=== PATIENT | female | born 1955 | race Caucasian/White ===

== ENCOUNTER 2022-05-15 06:02 | Emergency (ER) | payer MEDICARE, OTHER ==
[2022-05-15] MEDS ORDERED: METOCLOPRAMIDE 5 MG/ML 2 ML VIAL IVP STA (06:18)
[2022-05-15] MEDS ORDERED: MAG HYDROX/AL HYDROX/SIMETH 30 ML CUP PO STA (06:18)
[2022-05-15 06:46] LABS: Basophils % (A) 1 %; Eosinophils # (A) 0.1 k/uL (0-0.7); Eosinophils % (A) 1 %; HCT 40.4 % (34.0-46.0); HGB 13.4 gm/dL (11.4-16.0); Lymphocytes # (A) 2.1 k/uL (1.0-4.8); Lymphocytes % (A) 38 %; MCH 31.6 pg (25.0-35.0); MCHC 33.2 g/dL (31.0-37.0); MCV 95.1 fL (80.0-100.0); Mean Platelet Volume 8.1; Monocytes # (A) 0.4 k/uL (0-1.0); Monocytes % (A) 8 %; Neutrophils # (A) 2.7 k/uL (1.3-7.7); Neutrophils % (A) 50 %; Platelet Count 214 k/uL (150-450); RBC 4.25 m/uL (3.80-5.40); RDW 14.3 % (11.5-15.5); WBC 5.4 k/uL (3.8-10.6)
[2022-05-15 06:52] LABS: ALT 25 U/L (4-34); AST 60 U/L (14-36); African American GFR (CKD) >90 (>60 ml/min/1.73 sqM); Albumin 3.2 g/dL (3.5-5.0); Alkaline Phosphatase 102 U/L (38-126); Anion Gap 10 mmol/L; Blood Urea Nitrogen 16 mg/dL (7-17); Calcium 8.5 mg/dL (8.4-10.2); Carbon Dioxide 26 mmol/L (22-30); Chloride 99 mmol/L (98-107); Glucose 107 mg/dL (74-99); Magnesium 2.1 mg/dL (1.6-2.3); Non-African American GFR(CKD) >90 (>60 ml/min/1.73 sqM); Sodium 135 mmol/L (137-145); Total Bilirubin 0.8 mg/dL (0.2-1.3)
--- NOTE | 2022-05-15 07:05 | ED ---
Chest Pain HPI - General Chief Complaint: Chest Pain Stated Complaint: covid+, chest pain Time Seen by Provider: 05/15/22 06:03 Source: patient, EMS, RN notes reviewed Mode of arrival: EMS Limitations: no limitations - History of Present Illness Initial Comments: This a 66-year-old female presents emergency Department chief complaint of generalized weakness, not feeling well. Patient states she was diagnosed with COVID-19 on Thursday at [facility]. Patient states she was diagnosed when she was in the hospital for chest pain. Patient states she was admitted had a cardiac cath with no findings. She states she had clean coronary arteries and had no stents placed. Patient states she was discharged. Patient states that she is currently on pelvic rest for history of PE she denies any shortness breath she does not that she's been coughing a lot complaint of epigastric comfort. Patient states that she has no shortness breath no recent fevers or not taken Tylenol Motrin denies any GI symptoms currently but does admit to prior nausea and diarrhea. Patient offers no other associated symptoms. - Related Data Home Medications Medication Instructions Recorded Confirmed Baclofen [Lioresal] 10 mg PO BID 01/01/14 01/01/14 Cholecalciferol [Vitamin D3 (25 5,000 unit PO DAILY@1200 01/01/14 01/01/14 Mcg = 1000 Iu)] Omeprazole 40 mg PO AC-BRKFST 01/01/14 01/01/14 Spironolactone [Aldactone] 12.5 mg PO DAILY 01/01/14 01/01/14 atenoloL [Tenormin] 12.5 mg PO HS 01/01/14 01/01/14 traMADol HCl [Ultram] 50 mg PO QID PRN 01/01/14 01/01/14 Previous Rx's Medication Instructions Recorded Propafenone [Rythmol] 150 mg PO Q8HR #90 tab 01/03/14 Rivaroxaban [Xarelto] 20 mg PO DAILY #30 tab 01/03/14 lisinopriL [Zestril] 5 mg PO DAILY #30 tab 01/03/14 Nirmatrelvir/Ritonavir [Paxlovid See Rx Instructions .ROUTE 05/15/22 2X150 mg-100 mg (Eua)] .COMPLEX #30 tab Allergies Allergy/AdvReac Type Severity Reaction Status Date / Time amoxicillin trihydrate AdvReac Diarrhea Verified 05/15/22 06:13 [From Augmentin] potassium clavulanate AdvReac Diarrhea Verified 05/15/22 06:13 [From Augmentin] Review of Systems ROS Statement: Those systems with pertinent positive or pertinent negative responses have been documented in the HPI. ROS Other: All systems not noted in ROS Statement are negative. EKG Findings - EKG Comments: EKG Findings:: EKG performed at 6:11 sinus rhythm rate of 68 TN 165 QRS 89 QT status QTC 438/456 Past Medical History Past Medical History: Asthma, GERD/Reflux, Hypertension Additional Past Medical History / Comment(s): ARTHRITIS, MUSCLE SPAMS, NERVE PAIN NUMBNESS TOES AND HANDS, LEFT SHOULDER STIFFNESS History of Any Multi-Drug Resistant Organisms: None Reported Past Surgical History: Appendectomy, Tonsillectomy Additional Past Surgical History / Comment(s): RIGHT BREAST BIOPSY/ABCESS ABD REMOVED 2 TIMES AGE 29S Past Anesthesia/Blood Transfusion Reactions: No Reported Reaction Past Psychological History: No Psychological Hx Reported Past Drug Use History: None Reported - Past Family History Mother Family Medical History: CVA/TIA, Diabetes Mellitus, Hypertension Additional Family Medical History / Comment(s): ARTHRITIS Father Additional Family Medical History / Comment(s): SUDDENLY AGE 59 EMPHYSEMA AND GANGRENE COLON Brother(s) Additional Family Medical History / Comment(s): HEART STENTS AND OPEN HEART SURGERY Sister(s) Additional Family Medical History / Comment(s): OSTEOPOROSIS General Exam Limitations: no limitations General appearance: alert, in no apparent distress Head exam: Present: atraumatic, normocephalic, normal inspection Eye exam: Present: normal appearance, PERRL, EOMI. Absent: scleral icterus, conjunctival injection, periorbital swelling ENT exam: Present: normal exam, normal oropharynx, mucous membranes moist Neck exam: Present: normal inspection, full ROM. Absent: tenderness, meningismus, lymphadenopathy Respiratory exam: Present: normal lung sounds bilaterally. Absent: respiratory distress, wheezes, rales, rhonchi, stridor Cardiovascular Exam: Present: regular rate, normal rhythm, normal heart sounds. Absent: systolic murmur, diastolic murmur, rubs, gallop, clicks GI/Abdominal exam: Present: soft, normal bowel sounds. Absent: distended, tenderness, guarding, rebound, rigid Neurological exam: Present: alert Skin exam: Present: warm, dry, intact, normal color. Absent: rash Course Vital Signs 05/15/22 06:50 Temperature 98.6 F Pulse Rate 81 Respiratory 15 Rate Blood Pressure 149/72 O2 Sat by Pulse 97 Oximetry Chest Pain MDM - MDM 66-year-old female presented for COVID-19 [place] not feeling well. Workup is negative this time she had a recent cardiac cath which was negative on Thursday. Patient says a positive for COVID-19. Patient be given Paxil bid. Patient does have home health care nursing which is been set up today. Patient will be discharged to home. Disposition Clinical Impression: COVID-19 Disposition: HOME SELF-CARE Condition: Stable Additional Instructions: Please return to the Emergency Department if symptoms worsen or any other concerns. Prescriptions: Nirmatrelvir/Ritonavir [Paxlovid 2X150 mg-100 mg (Eua)] See Rx Instructions .ROUTE .COMPLEX #30 tab Is patient prescribed a controlled substance at d/c from ED?: No Referrals: Epifanio Durham MD [Primary Care Provider] - 1-2 days Time of Disposition: 08:02
[2022-05-15 07:25] LABS: Potassium 4.8 mmol/L (3.5-5.1)
--- NOTE | 2022-05-15 07:33 | XR ---
EXAMINATION TYPE: XR chest 1V DATE OF EXAM: 05/15/2022 COMPARISON: NONE HISTORY: 66-year-old female weakness TECHNIQUE: Single frontal view of the chest is obtained. FINDINGS: Low lung volumes with crowded vascular markings. This likely accentuates the heart size, upper limits of normal. Hazy peripheral densities likely relating to overlying soft tissue and portable technique . No tiarra consolidation or pleural effusion seen. Advanced degenerative change left shoulder. IMPRESSION: Portable technique further limited by low lung volumes. No definite acute process.
[2022-05-15 10:25] VITALS: BP 146/92; PULSE 76; RESP 22; TEMP 97.6
== END 2022-05-15 10:24 | disposition home or self-care (01) ==
LOC: EC 06:02
DX: U07.1 COVID-19 (principal); K21.9 Gastro-esophageal reflux disease without esophagitis; E11.9 Type 2 diabetes mellitus without complications; I10 Essential (primary) hypertension; Z88.0 Allergy status to penicillin; Z88.1 Allergy status to other antibiotic agents; Z79.83 Long term (current) use of bisphosphonates; Z79.899 Other long term (current) drug therapy
CPT/HCPCS: 36415; 93005; 83880; 80053; 83735; 85025; 71045; 99285; 96374; J2765

== ENCOUNTER 2025-01-16 13:04 | Inpatient (IN) | payer MEDICARE, OTHER ==
--- NOTE | 2025-01-16 13:18 | ED ---
General Adult HPI - General Stated complaint: AMS Time Seen by Provider: 01/16/25 13:13 Source: patient, EMS, RN notes reviewed Mode of arrival: EMS Limitations: physical limitation - History of Present Illness Initial comments: Patient is a 69-year-old female present to the emergency department by EMS with concern for reported altered mental status. EMS reports patient and family are poor historians. Patient is not ambulatory. Patient has decreased oral intake. Patient complains of pain everywhere. - Related Data Home Medications Medication Instructions Recorded Confirmed Baclofen [Lioresal] 10 mg PO BID 01/01/14 01/01/14 Cholecalciferol [Vitamin D3 (25 5,000 unit PO DAILY@1200 01/01/14 01/01/14 Mcg = 1000 Iu)] Omeprazole 40 mg PO AC-BRKFST 01/01/14 01/01/14 Spironolactone [Aldactone] 12.5 mg PO DAILY 01/01/14 01/01/14 atenoloL [Tenormin] 12.5 mg PO HS 01/01/14 01/01/14 traMADol HCl [Ultram] 50 mg PO QID PRN 01/01/14 01/01/14 Previous Rx's Medication Instructions Recorded Propafenone [Rythmol] 150 mg PO Q8HR #90 tab 01/03/14 Rivaroxaban [Xarelto] 20 mg PO DAILY #30 tab 01/03/14 lisinopriL [Zestril] 5 mg PO DAILY #30 tab 01/03/14 Nirmatrelvir/Ritonavir [Paxlovid See Rx Instructions .ROUTE 05/15/22 2X150 mg-100 mg (Eua)] .COMPLEX #30 tab Allergies Allergy/AdvReac Type Severity Reaction Status Date / Time amoxicillin trihydrate AdvReac Diarrhea Verified 05/15/22 06:13 [From Augmentin] potassium clavulanate AdvReac Diarrhea Verified 05/15/22 06:13 [From Augmentin] Review of Systems ROS Statement: Those systems with pertinent positive or pertinent negative responses have been documented in the HPI. ROS Other: All systems not noted in ROS Statement are negative. Constitutional: Denies: fever Respiratory: Denies: dyspnea Cardiovascular: Denies: chest pain Gastrointestinal: Reports: as per HPI. Denies: vomiting Past Medical History Past Medical History: Asthma, GERD/Reflux, Hypertension Additional Past Medical History / Comment(s): ARTHRITIS, MUSCLE SPAMS, NERVE PAIN NUMBNESS TOES AND HANDS, LEFT SHOULDER STIFFNESS History of Any Multi-Drug Resistant Organisms: None Reported Past Surgical History: Appendectomy, Tonsillectomy Additional Past Surgical History / Comment(s): RIGHT BREAST BIOPSY/ABCESS ABD REMOVED 2 TIMES AGE 29S Past Anesthesia/Blood Transfusion Reactions: No Reported Reaction Past Psychological History: No Psychological Hx Reported Past Drug Use History: None Reported - Past Family History Mother Family Medical History: CVA/TIA, Diabetes Mellitus, Hypertension Additional Family Medical History / Comment(s): ARTHRITIS Father Additional Family Medical History / Comment(s): SUDDENLY AGE 59 EMPHYSEMA AND GANGRENE COLON Brother(s) Additional Family Medical History / Comment(s): HEART STENTS AND OPEN HEART SURGERY Sister(s) Additional Family Medical History / Comment(s): OSTEOPOROSIS General Exam Limitations: physical limitation General appearance: alert Head exam: Present: atraumatic Eye exam: Present: normal appearance ENT exam: Present: mucous membranes dry Neck exam: Present: normal inspection Respiratory exam: Present: normal lung sounds bilaterally Cardiovascular Exam: Present: tachycardia, irregular rhythm GI/Abdominal exam: Present: soft. Absent: tenderness Neurological exam: Present: alert, oriented X3 Expanded Neurological exam: Present: protecting the airway Patient oriented to: Present: person, place, time Speech: Present: fluid speech Cranial nerves: EOM's Intact: Normal Sensory exam: Upper Extremity Light Touch: Normal, Lower Extremity Light Touch: Normal Motor strength exam: RUE: 5, LUE: 5, RLE: 2/1, LLE: 2/1 Eye Response: (4) open spontaneously Motor Response: (6) obeys commands Verbal Response: (5) oriented Psychiatric exam: Present: normal affect, normal mood Skin exam: Present: other (Small but deep sacral ulcer. No drainage or di scharge.) Course Vital Signs 01/16/25 01/16/25 13:09 13:43 Temperature 98.5 F Pulse Rate 122 H 131 H Respiratory 22 20 Rate Blood Pressure 101/60 150/99 O2 Sat by Pulse 79 L 97 Oximetry EKG Findings - EKG Results: EKG: interpreted by ERMD (Left axis.), normal QRS, normal ST/T EKG shows: tachycardia, atrial fibrillation Procedures - ABG Interpretation Ph: 7.41 PCO2: 33 PO2: 77 Interpretation: other (Mildly hypoxic) Medical Decision Making - Medical Decision Making Was pt. sent in by a medical professional or institution ([facility], [employer], urgent care, hospital, or [place] health [place] facility...) When possible be specific @ -No Did you speak to anyone other than the patient for history (EMS, parent, family, police, friend...)? What history was obtained from this source @ -EMS helps provide history as patient is a poor historian Did you review nursing and triage notes (agree or disagree)? Why? @ -I reviewed and agree with nursing and triage notes Were old charts reviewed (outside hosp., previous admission, EMS record, old EKG, old radiological studies, urgent care reports/EKG's, [place] health care facility records)? Report findings @ -No old charts were reviewed Differential Diagnosis (chest pain, altered mental status, abdominal pain women, abdominal pain men, vaginal bleeding, weakness, fever, dyspnea, syncope, headache, dizziness, GI bleed, back pain, seizure, CVA, palpatations, mental health, musculoskeletal)? @ -Differential Weakness: Hypoglycemia, shock, sepsis, hyponatremia, anemia, infection, NE, ETOH, adverse medicine reaction, overdose, stroke, this is not meant to be an all-inclusive list. EKG interpreted by me (3pts min.). @ -As above X-rays interpreted by me (1pt min.). @ -Chest x-ray shows right middle and lower lobe infiltrate. Possible left nodular infiltrate CT interpreted by me (1pt min.). @ -None done U/S interpreted by me (1pt. min.). @ -None done What testing was considered but not performed or refused? (CT, X-rays, U/S, labs)? Why? @ -CT chest will be ordered What meds were considered but not given or refused? Why? @ -None Did you discuss the management of the patient with other professionals (professionals i.e. [facility], [employer], lab, RT, psych nurse, medical social consultant, laborer carpentry dock, teacher, sales and service officer, case consultant)? Give summary @ -Case discussed with Dr. Hi covering Dr. Peters who admits for Dr. Jackson for us Was smoking cessation discussed for >3mins.? @ -No Was critical care preformed (if so, how long)? @ -32 minutes critical care time Were there social determinants of health that impacted care today? How? (Homelessness, low income, unemployed, alcoholism, drug addiction, transportation, low edu. Level, literacy, decrease access to med. care, halfway, rehab)? @ -Nonambulatory Was there de-escalation of care discussed even if they declined (Discuss DNR or withdrawal of care, Hospice)? DNR status @ -No What co-morbidities impacted this encounter? (DM, HTN, Smoking, COPD, CAD, Cancer, CVA, ARF, Chemo, Hep., AIDS, mental health diagnosis, sleep apnea, morbid obesity)? @ -None Was patient admitted / discharged? Hospital course, mention meds given and route, prescriptions, significant lab abnormalities, going to OR and other pertinent info. @ -Patient presents from home with various nonspecific complaints. Patient does have UTI with associated sepsis and concern for dehydration. Chest x-ray is abnormal, possible pneumonia versus other. There is concern for sepsis diagnosed at 1510. Blood culture and lactic acid and IV antibiotics have all been ordered. Patient reevaluated and updated. [place] orders written. Undiagnosed new problem with uncertain prognosis? @ -No Drug Therapy requiring intensive monitoring for toxicity (Heparin, Nitro, Insulin, Cardizem)? @ -No Were any procedures done? @ -No Diagnosis/symptom? @ -Sepsis, UTI, pneumonia, dehydration Acute, or Chronic, or Acute on Chronic? @ -Acute, acute, acute, acute Uncomplicated (without systemic symptoms) or Complicated (systemic symptoms)? @ -Complicated with underlying A-fib with RVR, rate is improving currently 114 with fluids Side effects of treatment? @ -No Exacerbation, Progression, or Severe Exacerbation? @ -No Poses a threat to life or bodily function? How? (Chest pain, USA, NE, pneumonia, PE, COPD, DKA, ARF, appy, cholecystitis, CVA, Diverticulitis, Homicidal, Suicidal, threat to staff... and all critical care pts) @ -Threat to metabolic function - Lab Data Result diagrams: 01/16/25 13:56 01/16/25 13:56 Lab Results 01/16/25 01/16/25 01/16/25 Range/Units 13:56 13:56 13:56 WBC 26.61 H (4.50-10.00) 10*3/uL RBC 4.38 (4.10-5.20) 10*6/uL Hgb 13.3 (12.0-15.0) g/dL Hct 39.7 (37.2-46.3) % MCV 90.6 (80.0-97.0) fL MCH 30.4 (27.0-32.0) pg MCHC 33.5 (32.0-37.0) g/dL Plt Count 250 (140-440) 10*3/uL MPV 9.6 (9.5-12.2) fL Immature Gran % (Auto) 1.9 % Neutrophils % 82.8 % Lymphocytes % 8.0 % Monocytes % 6.8 % Eosinophils % 0.1 % Basophils % 0.4 % Immature Gran # 0.50 H (0.00-0.04) 10*3/uL Neutrophils # 22.03 H (1.80-7.70) 10*3/uL Lymphocytes # 2.14 (0.90-5.00) 10*3/uL Monocytes # 1.81 H (0.20-1.00) 10*3/uL Eosinophils # 0.03 L (0.04-0.35) 10*3/uL Basophils # 0.10 (0.00-0.10) 10*3/uL Sample Site ABG pH (7.35-7.45) ABG pCO2 (35-45) mmHg ABG pO2 (83-108) mmHg ABG HCO3 (21-25) mmol/L ABG Total CO2 (19-24) mmol/L ABG O2 Saturation (94-97) % ABG Base Excess mmol/L Chaka Test Hemoglobin (11.4-16.0) gm/dL FiO2 % Sodium 129 L (137-145) mmol/L Potassium 5.6 H (3.5-5.1) mmol/L Chloride 100 (98-107) mmol/L Carbon Dioxide 17 L (22-30) mmol/L Anion Gap 12 mmol/L BUN 38 H (7-17) mg/dL Creatinine 0.76 (0.52-1.04) mg/dL Est GFR (CKD-EPI)AfAm >90 (>60 ml/min/1.73 sqM) Est GFR (CKD-EPI)NonAf 80 (>60 ml/min/1.73 sqM) Glucose 114 H (74-99) mg/dL Plasma Lactic Acid Rich (0.7-2.0) mmol/L Calcium 7.8 L (8.4-10.2) mg/dL Magnesium 2.5 H (1.6-2.3) mg/dL Total Bilirubin 0.9 (0.2-1.3) mg/dL AST 71 H (14-36) U/L ALT 25 (4-34) U/L Alkaline Phosphatase 362 H (38-126) U/L Troponin I (0.000-0.034) ng/mL Total Protein 6.1 L (6.3-8.2) g/dL Albumin 2.0 L (3.5-5.0) g/dL Urine Color Yellow Urine Appearance Turbid H (Clear) Urine pH 5.5 (5.0-8.0) Ur Specific [place] 1.021 (1.001-1.035) Urine Protein 1+ H (Negative) Urine Glucose (UA) 3+ H (Negative) Urine Ketones Negative (Negative) Urine Blood Small H (Negative) Urine Nitrite Negative (Negative) Urine Bilirubin Negative (Negative) Urine Urobilinogen 6.0 (<2.0) mg/dL Ur Leukocyte Esterase Large H (Negative) Urine RBC >182 H (0-5) /hpf Urine WBC >182 H (0-5) /hpf Urine WBC Clumps Many H (None) /hpf Urine Mucus Rare H (None) /hpf Urine Yeast (Budding) Many H (None) /hpf 01/16/25 01/16/25 01/16/25 Range/Units 13:56 14:04 14:28 WBC (4.50-10.00) 10*3/uL RBC (4.10-5.20) 10*6/uL Hgb (12.0-15.0) g/dL Hct (37.2-46.3) % MCV (80.0-97.0) fL MCH (27.0-32.0) pg MCHC (32.0-37.0) g/dL Plt Count (140-440) 10*3/uL MPV (9.5-12.2) fL Immature Gran % (Auto) % Neutrophils % % Lymphocytes % % Monocytes % % Eosinophils % % Basophils % % Immature Gran # (0.00-0.04) 10*3/uL Neutrophils # (1.80-7.70) 10*3/uL Lymphocytes # (0.90-5.00) 10*3/uL Monocytes # (0.20-1.00) 10*3/uL Eosinophils # (0.04-0.35) 10*3/uL Basophils # (0.00-0.10) 10*3/uL Sample Site Left Brachial ABG pH 7.42 (7.35-7.45) ABG pCO2 33 L (35-45) mmHg ABG pO2 77 L (83-108) mmHg ABG HCO3 22 (21-25) mmol/L ABG Total CO2 23 (19-24) mmol/L ABG O2 Saturation 95.9 (94-97) % ABG Base Excess -2.4 mmol/L Chaka Test Yes Hemoglobin 12.6 (11.4-16.0) gm/dL FiO2 45 % Sodium (137-145) mmol/L Potassium (3.5-5.1) mmol/L Chloride (98-107) mmol/L Carbon Dioxide (22-30) mmol/L Anion Gap mmol/L BUN (7-17) mg/dL Creatinine (0.52-1.04) mg/dL Est GFR (CKD-EPI)AfAm (>60 ml/min/1.73 sqM) Est GFR (CKD-EPI)NonAf (>60 ml/min/1.73 sqM) Glucose (74-99) mg/dL Plasma Lactic Acid Rich 3.2 H* (0.7-2.0) mmol/L Calcium (8.4-10.2) mg/dL Magnesium (1.6-2.3) mg/dL Total Bilirubin (0.2-1.3) mg/dL AST (14-36) U/L ALT (4-34) U/L Alkaline Phosphatase (38-126) U/L Troponin I 0.014 (0.000-0.034) ng/mL Total Protein (6.3-8.2) g/dL Albumin (3.5-5.0) g/dL Urine Color Urine Appearance (Clear) Urine pH (5.0-8.0) Ur Specific [place] (1.001-1.035) Urine Protein (Negative) Urine Glucose (UA) (Negative) Urine Ketones (Negative) Urine Blood (Negative) Urine Nitrite (Negative) Urine Bilirubin (Negative) Urine Urobilinogen (<2.0) mg/dL Ur Leukocyte Esterase (Negative) Urine RBC (0-5) /hpf Urine WBC (0-5) /hpf Urine WBC Clumps (None) /hpf Urine Mucus (None) /hpf Urine Yeast (Budding) (None) /hpf Critical Care Time Critical Care Time: Yes Disposition Clinical Impression: Sepsis Disposition: ADMITTED IP TO THIS HOSP Condition: Serious Is patient prescribed a controlled substance at d/c from ED?: No Referrals: Dejan Barrios DO [Primary Care Provider] - 1-2 days Time of Disposition: 15:18
[2025-01-16] MEDS: LACTATED RINGERS 1,000 ML IV ONE (13:33)
[2025-01-16 14:09] LABS: Basophils # (A) 0.10 10*3/uL (0.00-0.10); Basophils % (A) 0.4 %; Eosinophils # (A) 0.03 10*3/uL (0.04-0.35); Eosinophils % (A) 0.1 %; HCT 39.7 % (37.2-46.3); HGB 13.3 g/dL (12.0-15.0); Lymphocytes # (A) 2.14 10*3/uL (0.90-5.00); Lymphocytes % (A) 8.0 %; MCH 30.4 pg (27.0-32.0); MCHC 33.5 g/dL (32.0-37.0); MCV 90.6 fL (80.0-97.0); Monocytes # (A) 1.81 10*3/uL (0.20-1.00); Monocytes % (A) 6.8 %; Neutrophils # (A) 22.03 10*3/uL (1.80-7.70); Neutrophils % (A) 82.8 %; Platelet Count 250 10*3/uL (140-440); RBC 4.38 10*6/uL (4.10-5.20); RDW 19.6 % (11.5-14.5); WBC 26.61 10*3/uL (4.50-10.00)
[2025-01-16 14:15] LABS: Bilirubin,Urine Negative (Negative); Blood,Urine Small (Negative); Budding Yeast,Urine Many /hpf; Color,Urine Yellow; Glucose,Urine (UA) 3+ (Negative); Ketones,Urine Negative (Negative); Leukocyte Esterase,Urine Large (Negative); Mucus,Urine Rare /hpf; Nitrite,Urine Negative (Negative); PH, Urine 5.5 (5.0-8.0); Protein,Urine 1+ (Negative); RBC,Urine >182 /hpf (0-5); Specific Gravity,Urine 1.021 (1.001-1.035); Urobilinogen,Urine 6.0 mg/dL (<2.0); WBC,Urine >182 /hpf (0-5)
--- NOTE | 2025-01-16 14:15 | XR ---
EXAMINATION TYPE: XR chest 1V portable DATE OF EXAM: 01/16/2025 2:06 PM COMPARISON: 05/15/2022 CLINICAL INDICATION: Female, 69 years old with history of weak, TECHNIQUE: XR chest 1V portable views of the chest are obtained. FINDINGS: Demonstrated are scattered senescent parenchymal change. There is nonspecific infiltrate right mid and right lower lung zone with a degree of patchy density l eft lateral lung base which appears somewhat nodular. Underlying mass is not excluded. There is also right-sided pleural effusion. Correlate with CT. The heart is stable. Hilar and mediastinal structures are within normal limits. Degenerative changes are seen of the dorsal spine. IMPRESSION: 1. There is nonspecific infiltrate right mid and right lower lung zone with a degree of patchy densi ty left lateral lung base which appears somewhat nodular. Underlying mass is not excluded. There is a lso right-sided pleural effusion. Correlate with CT. [facility], , 01/16/2025 2:13 PM
[2025-01-16 14:28] LABS: African American GFR (CKD) >90 (>60 ml/min/1.73 sqM); Albumin 2.0 g/dL (3.5-5.0); Anion Gap 12 mmol/L; Blood Urea Nitrogen 38 mg/dL (7-17); Calcium 7.8 mg/dL (8.4-10.2); Carbon Dioxide 17 mmol/L (22-30); Chloride 100 mmol/L (98-107); Glucose 114 mg/dL (74-99); Magnesium 2.5 mg/dL (1.6-2.3); Non-African American GFR(CKD) 80 (>60 ml/min/1.73 sqM); Potassium 5.6 mmol/L (3.5-5.1); Sodium 129 mmol/L (137-145); Total Protein 6.1 g/dL (6.3-8.2)
[2025-01-16 14:29] LABS: ALT 25 U/L (4-34); AST 71 U/L (14-36); Alkaline Phosphatase 362 U/L (38-126)
[2025-01-16] MEDS: LACTATED RINGERS 1,000 ML IV SCH (14:31)
[2025-01-16 14:33] LABS: ABG HCO3 22 mmol/L (21-25); ABG PCO2 33 mmHg (35-45); ABG PH 7.42 (7.35-7.45); ABG PO2 77 mmHg (83-108); ABG TCO2 23 mmol/L (19-24); Allen Test Performed? Yes
--- NOTE | 2025-01-16 15:04 | CT ---
EXAMINATION TYPE: CT brain wo con CT DLP: 1097.4 mGycm, Automated exposure control for dose reduction was used. DATE OF EXAM: 01/16/2025 2:53 PM COMPARISON: None. CLINICAL INDICATION:Female, 69 years old with history of weakness, weakness, ams TECHNIQUE: Brain: Multiple axial CT images of the brain were obtained without IV contrast. Sagittal reformats re viewed. FINDINGS: Brain: Extra-axial spaces: No abnormal extra-axial fluid collections. Ventricular system: Within normal limits Cerebral parenchyma: No acute intraparenchymal hemorrhage or mass effect. CSF attenuation encephalom alacia within the right frontal lobe. The remaining loepz-white junction is well differentiated. Scatt ered hypoattenuating areas are seen within the periventricular and subcortical white matter. Cerebellum: Unremarkable. Mass effect: No evidence of midline shift. Intracranial vasculature: Atherosclerotic calcifications of the intracranial vessels. Soft tissues: Normal. Calvarium/osseous structures: No depressed skull fracture. Benign hyperostosis frontalis noted. Paranasal sinuses and mastoid air cells: The mastoid air cells are clear. Near complete opacification of the right maxillary sinus with some subtle hyperdensity and some hyperostosis. The remaining para nasal sinuses are clear. Visualized orbits: Orbital contents are intact. IMPRESSION: 1. No acute intracranial process. 2. Nonspecific white matter changes, likely secondary to chronic small vessel ischemic disease. 3. Remote right frontal lobe injury with encephalomalacia. 4. Chronic right maxillary sinusitis. [facility], , 01/16/2025 3:02 PM
[2025-01-16] MEDS ORDERED: PNEUMONIA PROTOCOL UTILIZED 1 EACH MISC PO PRN (15:18)
[2025-01-16 16:31] LABS: INR 1.2 (<1.2); Partial Thromboplastin Time 23.6 sec (22.0-30.0); Prothrombin Time 12.5 sec (10.0-12.5)
[2025-01-16] MEDS ORDERED: IPRATROPIUM-ALBUTEROL 3 ML NEB INHALATION PRN (16:32)
[2025-01-16] MEDS: AZITHROMYCIN 500 MG in SODIUM CHLORIDE 0.9% 250 ML IVPB STA (16:41)
--- NOTE | 2025-01-16 18:27 | CT ---
EXAMINATION TYPE: CT angio chest CT DLP: 984 mGycm, Automated exposure control for dose reduction was used. DATE OF EXAM: 01/16/2025 5:58 PM COMPARISON: Chest radiograph from same day. CTA chest 12/08/2024 CLINICAL INDICATION:Female, 69 years old with history of richy, infiltrates; RICHY/INFILTRATE TECHNIQUE/CONTRAST: CTA scan of the thorax is performed with IV Contrast, patient injected with 100ml mL of Isovue 370, p ulmonary embolism protocol. MIP images are created and reviewed. FINDINGS: Pulmonary Artery: Large filling defect with near occlusion of the right mainstem bronchus distally. T here is some extension of thrombus. There is extension of pulmonary emboli into the right middle lobe segmental and subsegmental pulmonary arteries. The pulmonary artery is dilated measuring 4.2 cm in d iameter. Reflux of contrast into the IVC. Lungs/Pleura: Large right pleural effusion with atelectasis of the right middle and lower lobes. Wedg e-shaped consolidative subpleural opacities within the left lower lobe. Patchy groundglass opacities within the right middle lobe. Elevation of the right hemidiaphragm. Airway: Large airways are patent. Heart: Cardiomegaly is demonstrated.No pericardial effusion. Mild coronary artery calcifications pres ent. No flattening of the ventricular septum. Vasculature: No evidence of aortic aneurysm. Mediastinum: No evidence of adenopathy. Musculoskeletal: No acute osseous abnormalities. Bilateral advanced partially visualized shoulder art hropathy with calcified loose bodies. Moderate multilevel degenerative disc disease of the thoracic s pine. Grade 1 anterolisthesis of T9 on T10. Soft Tissues: Unremarkable. Lower neck: No significant findings. Upper Abdomen: Nondistended gallbladder. Atrophic appearance of the pancreas. Splenic callus or granu buffy. IMPRESSION: 1. Large pulmonary embolism within the right mainstem bronchus with additional extension into the rig ht middle lobe segmental and subsegmental pulmonary arteries. Findings concerning for possible right heart strain with dilated main pulmonary artery and reflux of contrast in the IVC. 2. Large right pleural effusion with atelectasis of the right middle and lower lobes. 3. Patchy airspace opacities within the right middle lobe which may represent superimposed infectious processes versus developing pulmonary infarcts. A [place] critical message alert has been initiated for Rolf Mitchell DO via the [employer] on 01/16/2025 6:25 PM. This message alert has been sent to Rolf Mitchell DO via t he preferences provided by the clinician for the receipt of Radiology Critical Findings. Message ID [id number]. [facility], , 01/16/2025 6:25 PM
[2025-01-16] MEDS: PIPERACILLIN-TAZOBACTAM 3.375 GM in SODIUM CHLORIDE 0.9% 100 ML IVPB SCH (18:54)
[2025-01-16] MEDS: HEPARIN SODIUM 1,000 UN/ML (10ML VL) IV ONE (19:51)
[2025-01-16] MEDS: HEPARIN SOD,PORK IN 0.45% NACL 25,000 UNIT in 0.45% NACL 1 250ML.BAG IV SCH (19:53)
[2025-01-16] MEDS: IPRATROPIUM-ALBUTEROL 3 ML NEB INHALATION SCH (19:56)
[2025-01-16 20:29] LABS: INR 1.3 (<1.2); Prothrombin Time 13.6 sec (10.0-12.5)
[2025-01-16] MEDS: HYDROcodone/APAP 5-325MG 1 EACH TAB PO PRN (20:30)
[2025-01-16] MEDS ORDERED: APIXABAN 2.5 MG TABLET PO SCH (21:00)
[2025-01-16] MEDS: BACLOFEN 10 MG TAB PO SCH (23:50)
--- NOTE | 2025-01-17 01:53 | HP ---
HISTORY AND PHYSICAL CHIEF COMPLAINT: Change in mental status and some shortness of breath. HISTORY OF PRESENT ILLNESS: This is a 69-year-old woman with a past medical history of multiple medical problems and was recently admitted to [facility]. Apparently, the patient was discharged, but apparently patient had change in mental status. The patient had yeast infection, and the patient was also having some shortness of breath. The patient had features of UTI with sepsis, and the patient was admitted for further evaluation. The patient is drowsy at this time. Most of the history was taken by discussion with staff and review of the chart. The chest x-ray which I reviewed personally showed evidence of right- sided pneumonia. The CT brain shows no acute process. PAST MEDICAL HISTORY: History of recent hospital admission for yeast infection and asthma. Rest of the history and chart was also reviewed. HOME MEDICATIONS: Reviewed, include Prilosec. Dose and rest of medications reviewed. ALLERGIES: Amoxicillin. Family history, social history and review of systems could not be taken. PHYSICAL EXAMINATION: VITAL SIGNS: Pulse is 123, blood pressure 113/90, respirations 19. HEENT: Conjunctivae are normal. NECK: No jugular venous distention. CARDIOVASCULAR: S1, S2. RESPIRATIONS: Bilateral scattered rhonchi and crackles. ABDOMEN: Soft and nontender, NERVOUS SYSTEM: Could not be examined, diffusely weak. SKIN: Significant decubitus ulcers in the back and also yeast infection also present. LABORATORY DATA: Noted. ASSESSMENT: 1. Sepsis, possibly secondary to right lower lobe pneumonia with urinary tract infection. 2. Change in mental status, metabolic encephalopathy. 3. Sacral decubitus ulcers. 4. Hyponatremia. 5. Hyperkalemia. 6. Increased white blood cells. 7. History of asthma. 8. Hypertension. 9. History of degenerative joint disease. 10.Obesity. 11.Multiple complex medical issues. RECOMMENDATIONS AND DISCUSSION: In this 69-year-old woman who presented with multiple complex medical issues, we will monitor the patient closely. I would recommend broad-spectrum IV antibiotics, cultures, pulmonary consultation. Otherwise, infectious disease evaluation. The prognosis is extremely guarded because of multiple complex medical issues which I discussed at length with the family. Guarded prognosis. Further recommendations to follow. MMODL / IJN: [id number] /
[2025-01-17] MEDS: HEPARIN SODIUM 1,000 UN/ML (10ML VL) IV PRN (02:15)
[2025-01-17] MEDS: MORPHINE SULFATE 2 MG/ML SYRINGE IVP STA (03:23)
[2025-01-17 03:46] LABS: HCT 39.0 % (37.2-46.3); HGB 13.1 g/dL (12.0-15.0); MCH 30.0 pg (27.0-32.0); MCHC 33.6 g/dL (32.0-37.0); MCV 89.4 fL (80.0-97.0); Platelet Count 270 10*3/uL (140-440); RBC 4.36 10*6/uL (4.10-5.20); RDW 19.7 % (11.5-14.5); WBC 33.55 10*3/uL (4.50-10.00)
[2025-01-17 03:57] LABS: ALT 24 U/L (4-34); African American GFR (CKD) 66 (>60 ml/min/1.73 sqM); Anion Gap 11 mmol/L; Blood Urea Nitrogen 41 mg/dL (7-17); Calcium 7.7 mg/dL (8.4-10.2); Carbon Dioxide 18 mmol/L (22-30); Chloride 100 mmol/L (98-107); Glucose 109 mg/dL (74-99); Non-African American GFR(CKD) 58 (>60 ml/min/1.73 sqM); Sodium 129 mmol/L (137-145)
[2025-01-17 04:02] LABS: AST 107 U/L (14-36); Albumin 2.0 g/dL (3.5-5.0); Alkaline Phosphatase 330 U/L (38-126); Potassium 5.6 mmol/L (3.5-5.1); Total Protein 6.0 g/dL (6.3-8.2)
[2025-01-17 05:45] LABS: Anisocytosis (M) Present; Lymphocytes # (M) 4.70 k/uL (1.0-4.8); Monocytes # (M) 0.34 k/uL (0-1.0); Neutrophils # (M) 28.51 k/uL (1.3-7.7); Neutrophils % (M) 76 %; Poikilocytosis (M) Present; Total Cells Counted 100
--- NOTE | 2025-01-17 05:53 | P.CNPUL ---
History of Present Illness Consult date: 01/17/25 Requesting physician: Rolf iMtchell Reason for consult: other (Pulmonary embolism) Chief complaint: Altered mental status History of present illness: Patient brought into the emergency department yesterday afternoon by EMS. She was altered/confused at home. No family present for interview. Recorded past medical history significant for hypertension, hyperlipidemia, atrial fibrillation, GERD, asthma. Workup in the ED including a brain CT which not show any acute intracranial process. Remote right frontal lobe injury with encephalomalacia. Chronic right maxillary sinusitis. Additional nonspecific white matter changes likely secondary to chronic small vessel ischemic disease. Workup in the ED including a urinalysis concerning for possible UTI. Chest CT angiogram remarkable for large filling within the right main pulmonary artery, extension into right middle lobe segmental and subsegmental pulmonary arteries. Dilated pulmonary artery measuring 4.2 cm and reflux of contrast into the IVC. Suspicious for right-sided heart strain. Patchy airspace opacities within the right middle lobe, suggesting superimposed infectious process versus developing pulmonary infarcts. Large right-sided pleural effusion with atelectasis of the right middle and lower lobes. Wedge shaped subpleural opacities in the left lower lobe, cannot exclude pulmonary infarcts. New findings from previous CAT scan done Nov, 2024. Labs including a CBC with a WBC count of 26.6, hemoglobin 13.3 g/dL, platelets 250. CMP: Sodium 129, potassium 5.6, chloride 100, serum bicarb 17, BUN 38, creatinine 0.76, glucose 114. Lactic was elevated at 4.1 is down to 3.1. AST 71, ALT 25, ALP 362. Troponin 0.014. Urinalysis noted. Patient currently being seen in the emergency department. She is lethargic, technically oriented x 3, however, does not answer other questions appropriately. She is crying out stating it hurts. Does not localize. Will follow simple commands. Eliquis is on hold, and continues on IV heparin per protocol. Cardiovascular team reportedly on-call for [facility], has been consulted and is notified. On bedside monitor, appears to be in atrial fibrillation with rapid ventricular rate at a rate of 110 to 130 bpm. Blood pressure normotensive, not requiring vasopressors. Currently, 110/81 mmHg. Did receive a 1 L lactated ringer fluid bolus and continues with lactated Ringer's infusing at 75 mL/h. Currently on 6 L high flow nasal cannula. Does not appear to be in respiratory distress. SpO2 reading 98%. Previous ABG including a PaO2 of 77, pCO2 of 33, pH of 7.42, down and on 6 L high flow cannula. Occasional congested cough noted. She appears very debilitated. She has multiple wounds including a decubitus wound. Previously started on Zosyn for antibiotic coverage. Review of Systems ROS unobtainable: due to mental status Past Medical History Past Medical History: Asthma, GERD/Reflux, Hypertension Additional Past Medical History / Comment(s): ARTHRITIS, MUSCLE SPAMS, NERVE PAIN NUMBNESS TOES AND HANDS, LEFT SHOULDER STIFFNESS History of Any Multi-Drug Resistant Organisms: None Reported Past Surgical History: Appendectomy, Tonsillectomy Additional Past Surgical History / Comment(s): RIGHT BREAST BIOPSY/ABCESS ABD REMOVED 2 TIMES AGE 29S Past Anesthesia/Blood Transfusion Reactions: No Reported Reaction Past Psychological History: No Psychological Hx Reported Past Drug Use History: None Reported - Past Family History Mother Family Medical History: CVA/TIA, Diabetes Mellitus, Hypertension Additional Family Medical History / Comment(s): ARTHRITIS Father Additional Family Medical History / Comment(s): SUDDENLY AGE 59 EMPHYSEMA AND GANGRENE COLON Brother(s) Additional Family Medical History / Comment(s): HEART STENTS AND OPEN HEART SURGERY Sister(s) Additional Family Medical History / Comment(s): OSTEOPOROSIS Medications and Allergies Home Medications Medication Instructions Recorded Confirmed Type Spironolactone [Aldactone] 25 mg PO Q2D 01/01/14 01/16/25 History traMADol HCl [Ultram] 50 - 100 mg PO TID PRN 01/01/14 01/16/25 History Albuterol Sulfate [Albuterol 2 puff PO RT-Q4H PRN 01/16/25 01/16/25 History Sulfate Hfa] Apixaban [Eliquis] 2.5 mg PO BID 01/16/25 01/16/25 History Atorvastatin [Lipitor] 20 mg PO DAILY 01/16/25 01/16/25 History Baclofen 10 mg PO TID 01/16/25 01/16/25 History Betamethasone Valerate [Luxiq 0.1%] 1 applic TOPICAL DAILY PRN 01/16/25 01/16/25 History Cholecalciferol [Vitamin D3 (25 50 mcg PO DAILY 01/16/25 01/16/25 History Mcg = 1000 Iu)] Desenex 2% Powder 1 applic TOPICAL BID 01/16/25 01/16/25 History Digoxin [Digitek] 125 mcg PO DAILY 01/16/25 01/16/25 History Empagliflozin [Jardiance] 10 mg PO DAILY 01/16/25 01/16/25 History Furosemide [Lasix] 20 mg PO Q2D 01/16/25 01/16/25 History Gabapentin [Neurontin] 300 mg PO TID 01/16/25 01/16/25 History Metoprolol Succinate [Toprol XL] 50 mg PO DAILY 01/16/25 01/16/25 History Mirabegron [Mirabegron ER] 50 mg PO DAILY 01/16/25 01/16/25 History Multivitamins, Thera [Multivitamin 1 tab PO DAILY 01/16/25 01/16/25 History (formulary)] Mupirocin 2% Oint [Bactroban 2% 1 applic TOPICAL DAILY 01/16/25 01/16/25 History Oint] Omeprazole [PriLOSEC] 40 mg PO DAILY 01/16/25 01/16/25 History allopurinoL [Zyloprim] 100 mg PO DAILY 01/16/25 01/16/25 History Allergies Allergy/AdvReac Type Severity Reaction Status Date / Time amoxicillin trihydrate AdvReac Diarrhea Verified 01/16/25 15:38 [From Augmentin] potassium clavulanate AdvReac Diarrhea Verified 01/16/25 15:38 [From Augmentin] Physical Exam Vitals: Vital Signs Temp Pulse Resp BP Pulse Ox 01/16/25 23:55 116 H 20 112/40 98 01/16/25 23:00 129 H 21 102/67 96 01/16/25 22:00 113 H 19 99/55 96 01/16/25 21:00 120 H 20 119/99 96 01/16/25 20:07 110 H 01/16/25 19:57 128 H 01/16/25 19:28 124 H 21 120/92 93 L 01/16/25 18:54 116 H 20 121/94 94 L 01/16/25 16:13 123 H 19 113/90 94 L 01/16/25 15:35 22 01/16/25 13:43 131 H 20 150/99 97 01/16/25 13:09 98.5 F 122 H 22 101/60 79 L Intake and Output 01/16/25 01/16/25 01/17/25 14:59 22:59 06:59 Other: Weight 122.924 kg GENERAL EXAM: Lethargic, obese 69-year-old female, lying in bed, on 6 L/min nasal cannula, no respiratory distress. She does cry out in pain. Will follow simple commands HEAD: Normocephalic and atraumatic EYES: Normal reaction of pupils, equal size. NOSE: Clear with pink turbinates. THROAT: No erythema or exudates. Dry mucous membranes. NECK: No masses, no JVD. CHEST: No chest wall deformity. LUNGS: Equal air entry with diminished right basilar lung sounds. On 6 L/min nasal cannula. No conversational dyspnea or accessory muscle use.. CVS: S1 and S2 normal with no audible murmur, irregular rhythm. No extra heart sounds ABDOMEN: No hepatosplenomegaly, active bowel sounds, no guarding or rigidity. SPINE: No scoliosis or deformity SKIN: Multiple wounds including decubitus, under breast folds, and abdominal pannus. CENTRAL NERVOUS SYSTEM: Lethargic, confused, follows simple commands, no focal deficits, tone is normal in all 4 extremities. EXTREMITIES: There is 2-3+ bilateral lower extremity pitting edema. Charcot foot deformity. no clubbing or cyanosis. Peripheral pulses are intact. Results - Laboratory Findings CBC and BMP: 01/17/25 03:05 01/17/25 03:05 ABG ABG pH 7.42 (7.35-7.45) 01/16/25 14:28 ABG pCO2 33 mmHg (35-45) L 01/16/25 14:28 ABG pO2 77 mmHg (83-108) L 01/16/25 14:28 ABG O2 Saturation 95.9 % (94-97) 01/16/25 14:28 PT/INR, D-dimer PT 13.6 sec (10.0-12.5) H 01/16/25 20:12 INR 1.3 (<1.2) H 01/16/25 20:12 Abnormal lab findings: Abnormal Labs 01/16/25 01/16/25 01/16/25 13:56 13:56 13:56 WBC 26.61 H Immature Gran # 0.50 H Neutrophils # 22.03 H Monocytes # 1.81 H Eosinophils # 0.03 L PT INR ABG pCO2 ABG pO2 Sodium 129 L Potassium 5.6 H Carbon Dioxide 17 L BUN 38 H Glucose 114 H Plasma Lactic Acid Rich Calcium 7.8 L Magnesium 2.5 H AST 71 H Alkaline Phosphatase 362 H Total Protein 6.1 L Albumin 2.0 L Urine Appearance Turbid H Urine Protein 1+ H Urine Glucose (UA) 3+ H Urine Blood Small H Ur Leukocyte Esterase Large H Urine RBC >182 H Urine WBC >182 H Urine WBC Clumps Many H Urine Mucus Rare H Urine Yeast (Budding) Many H 01/16/25 01/16/25 01/16/25 13:56 14:28 15:31 WBC Immature Gran # Neutrophils # Monocytes # Eosinophils # PT INR 1.2 H ABG pCO2 33 L ABG pO2 77 L Sodium Potassium Carbon Dioxide BUN Glucose Plasma Lactic Acid Rich 3.2 H* Calcium Magnesium AST Alkaline Phosphatase Total Protein Albumin Urine Appearance Urine Protein Urine Glucose (UA) Urine Blood Ur Leukocyte Esterase Urine RBC Urine WBC Urine WBC Clumps Urine Mucus Urine Yeast (Budding) 01/16/25 01/16/25 01/16/25 17:01 20:12 20:20 WBC Immature Gran # Neutrophils # Monocytes # Eosinophils # PT 13.6 H INR 1.3 H ABG pCO2 ABG pO2 Sodium Potassium Carbon Dioxide BUN Glucose Plasma Lactic Acid Rich 3.5 H* 4.1 H* Calcium Magnesium AST Alkaline Phosphatase Total Protein Albumin Urine Appearance Urine Protein Urine Glucose (UA) Urine Blood Ur Leukocyte Esterase Urine RBC Urine WBC Urine WBC Clumps Urine Mucus Urine Yeast (Budding) 01/16/25 23:23 WBC Immature Gran # Neutrophils # Monocytes # Eosinophils # PT INR ABG pCO2 ABG pO2 Sodium Potassium Carbon Dioxide BUN Glucose Plasma Lactic Acid Rich 3.1 H* Calcium Magnesium AST Alkaline Phosphatase Total Protein Albumin Urine Appearance Urine Protein Urine Glucose (UA) Urine Blood Ur Leukocyte Esterase Urine RBC Urine WBC Urine WBC Clumps Urine Mucus Urine Yeast (Budding) - Diagnostic Findings CT scan - chest: image reviewed Assessment and Plan Assessment: Acute pulmonary embolism, submassive, involving the right main pulmonary artery, with extension into the right middle lobe segmental and subsegmental pulmonary arteries. CT evidence of right-sided heart strain. Large right-sided pleural effusion with adjacent consolidation, aspiration pneumonia is not excluded Acute hypoxemic respiratory failure, currently on 6 L high flow nasal cannula, secondary to a combination of above Atrial fibrillation rapid ventricular response, previously maintained on Eliquis which is on hold secondary to above. Possible UTI Acute leukocytosis Sepsis criteria met Altered mental status, consider toxic metabolic encephalopathy; brain CT which not show any acute intracranial process. Remote right frontal lobe injury with encephalomalacia. Chronic right maxillary sinusitis. Additional nonspecific white matter changes likely secondary to chronic small vessel ischemic disease Lactic acidosis, improving Hyponatremia, appears hypervolemic History of hypertension History of hyperlipidemia Gastroesophageal reflux disease History of asthma Sacral decubitus wound Morbid obesity, with a BMI of 43.7 kg/m Plan: Continue supplemental oxygen maintain oxygen saturation of 92% or greater Blood pressure currently normotensive, not requiring vasopressors Continue IV maintenance fluids Continue IV heparin per protocol Eliquis is on hold Obtain follow-up transthoracic echocardiogram Cardiovascular on-call for [facility] Cardiac medications have been previously resumed Continue with empiric antibiotics, infectious diseases managing Blood cultures are pending Overall prognosis is guarded secondary to above mentioned multiple debilitating comorbidities Case will be reviewed with my supervising physician, further recommendations to follow I have personally seen and examined the patient, performed the documentation and the assessment and plan as written. Number of minutes spent on the visit:20 Time with Patient: Greater than 30
[2025-01-17] MEDS: MORPHINE SULFATE 2 MG/ML SYRINGE IVP PRN (06:15)
--- NOTE | 2025-01-17 06:38 | XR ---
EXAMINATION TYPE: XR chest 1V portable DATE OF EXAM: 01/17/2025 5:13 AM COMPARISON: Chest radiographs from 01/16/2025 CLINICAL INDICATION: Female, 69 years old with history of pneumonia; [facility] TECHNIQUE: XR chest 1V portable Frontal view of the chest. FINDINGS: Lungs/Pleura: Blunting of the right costophrenic angle. There is no evidence of left pleural effusio n, focal consolidation, or pneumothorax Pulmonary vascularity: Pulmonary vascular congestion. Heart/mediastinum: Cardiomediastinal silhouette is enlarged. Musculoskeletal: Degenerative changes of the shoulder joints. IMPRESSION: Cardiomegaly, pulmonary vascular congestion and bilateral pleural effusions. Correlate with BNP for c ongestive heart failure. [facility], , 01/17/2025 6:36 AM
--- NOTE | 2025-01-17 07:13 | P.CONS ---
History of Present Illness - Reason for Consult Consult date: 01/16/25 Sepsis Requesting physician: Clarke Fortune - Chief Complaint Weakness and mental status changes x 1 day - History of Present Illness Patient is a 69-year-old female with a past medical history significant for reflux hypertension asthma, patient has been brought into the hospital by EMS after the patient was noticed to be altered confused at home patient complaining of pain all over her body patient denies having any headache or URI symptoms patient denies having any chest pain complains of some shortness of breath occasional cough but not bringing up any sputum patient did have some nausea but no vomiting some lower abdominal discomfort no diarrhea or cons tipation patient on presentation to the hospital was afebrile patient was tachycardic mildly hypotensive and hypoxic currently on nasal cannula supplemental oxygen patient did have elevated white count 26.61 with a left shift did have elevated lactic acid creatinine 0.76 potassium was elevated urine has been positive patient did have a chest x-ray nonspecific infiltrate right mid and right lower lung with a degree of patchy density left lateral lung base somewhat nodular mass is not excluded patient also have a CT angiogram of the chest with evidence of large pulmonary embolism within the right mainstem bronchus with additional extension into the right middle lobe segmental and subsegmental pulmonary arteries large slight pleural effusion which helps with opacity in the right middle lobe which may represent superimposed infectious process patient has received Rocephin and Zithromax in the ER subsequently while he has been switched over to Zosyn infectious disease was consulted for further management of antibiotic therapy Review of Systems Positive point and negatives has been mentioned in the HPI, complete review of systems was performed and all other systems are negative Past Medical History Past Medical History: Asthma, GERD/Reflux, Hypertension Additional Past Medical History / Comment(s): ARTHRITIS, MUSCLE SPAMS, NERVE PAIN NUMBNESS TOES AND HANDS, LEFT SHOULDER STIFFNESS History of Any Multi-Drug Resistant Organisms: None Reported Past Surgical History: Appendectomy, Tonsillectomy Additional Past Surgical History / Comment(s): RIGHT BREAST BIOPSY/ABCESS ABD REMOVED 2 TIMES AGE 29S Past Anesthesia/Blood Transfusion Reactions: No Reported Reaction Past Psychological History: No Psychological Hx Reported Past Drug Use History: None Reported - Past Family History Mother Family Medical History: CVA/TIA, Diabetes Mellitus, Hypertension Additional Family Medical History / Comment(s): ARTHRITIS Father Additional Family Medical History / Comment(s): SUDDENLY AGE 59 EMPHYSEMA AND GANGRENE COLON Brother(s) Additional Family Medical History / Comment(s): HEART STENTS AND OPEN HEART SURGERY Sister(s) Additional Family Medical History / Comment(s): OSTEOPOROSIS Medications and Allergies Home Medications Medication Instructions Recorded Confirmed Type Spironolactone [Aldactone] 25 mg PO Q2D 01/01/14 01/16/25 History traMADol HCl [Ultram] 50 - 100 mg PO TID PRN 01/01/14 01/16/25 History Albuterol Sulfate [Albuterol 2 puff PO RT-Q4H PRN 01/16/25 01/16/25 History Sulfate Hfa] Apixaban [Eliquis] 2.5 mg PO BID 01/16/25 01/16/25 History Atorvastatin [Lipitor] 20 mg PO DAILY 01/16/25 01/16/25 History Baclofen 10 mg PO TID 01/16/25 01/16/25 History Betamethasone Valerate [Luxiq 0.1%] 1 applic TOPICAL DAILY PRN 01/16/25 01/16/25 History Cholecalciferol [Vitamin D3 (25 50 mcg PO DAILY 01/16/25 01/16/25 History Mcg = 1000 Iu)] Desenex 2% Powder 1 applic TOPICAL BID 01/16/25 01/16/25 History Digoxin [Digitek] 125 mcg PO DAILY 01/16/25 01/16/25 History Empagliflozin [Jardiance] 10 mg PO DAILY 01/16/25 01/16/25 History Furosemide [Lasix] 20 mg PO Q2D 01/16/25 01/16/25 History Gabapentin [Neurontin] 300 mg PO TID 01/16/25 01/16/25 History Metoprolol Succinate [Toprol XL] 50 mg PO DAILY 01/16/25 01/16/25 History Mirabegron [Mirabegron ER] 50 mg PO DAILY 01/16/25 01/16/25 History Multivitamins, Thera [Multivitamin 1 tab PO DAILY 01/16/25 01/16/25 History (formulary)] Mupirocin 2% Oint [Bactroban 2% 1 applic TOPICAL DAILY 01/16/25 01/16/25 History Oint] Omeprazole [PriLOSEC] 40 mg PO DAILY 01/16/25 01/16/25 History allopurinoL [Zyloprim] 100 mg PO DAILY 01/16/25 01/16/25 History Allergies Allergy/AdvReac Type Severity Reaction Status Date / Time amoxicillin trihydrate AdvReac Diarrhea Verified 01/16/25 15:38 [From Augmentin] potassium clavulanate AdvReac Diarrhea Verified 01/16/25 15:38 [From Augmentin] Physical Exam Vitals: Vital Signs Temp Pulse Resp BP Pulse Ox 01/16/25 16:13 123 H 19 113/90 94 L 01/16/25 15:35 22 01/16/25 13:43 131 H 20 150/99 97 01/16/25 13:09 98.5 F 122 H 22 101/60 79 L Intake and Output 01/16/25 01/16/25 01/16/25 06:59 14:59 22:59 Other: Weight 122.924 kg GENERAL DESCRIPTION: Elderly female lying in bed, no distress. No tachypnea or accessory muscle of respiration use. HEENT: Shows Pallor , no scleral icterus. Oral mucous membrane is dry. NECK: Trachea central, no thyromegaly. LUNGS: Unlabored breathing. Decreased breath sound at the base HEART: S1, S2, regular rate and rhythm. No loud murmur ABDOMEN: Soft, no tenderness , EXTREMITIES: No edema of feet. SKIN: No rash, no masses palpable. NEUROLOGICAL: The patient is lethargic but arousable, mood and affect normal. Results CBC & Chem 7: 01/17/25 03:05 01/17/25 03:05 Labs: Abnormal Lab Results - Last 24 Hours (Table) 01/16/25 01/16/25 01/16/25 Range/Units 13:56 13:56 13:56 WBC 26.61 H (4.50-10.00) 10*3/uL Immature Gran # 0.50 H (0.00-0.04) 10*3/uL Neutrophils # 22.03 H (1.80-7.70) 10*3/uL Monocytes # 1.81 H (0.20-1.00) 10*3/uL Eosinophils # 0.03 L (0.04-0.35) 10*3/uL INR (<1.2) ABG pCO2 (35-45) mmHg ABG pO2 (83-108) mmHg Sodium 129 L (137-145) mmol/L Potassium 5.6 H (3.5-5.1) mmol/L Carbon Dioxide 17 L (22-30) mmol/L BUN 38 H (7-17) mg/dL Glucose 114 H (74-99) mg/dL Plasma Lactic Acid Rich (0.7-2.0) mmol/L Calcium 7.8 L (8.4-10.2) mg/dL Magnesium 2.5 H (1.6-2.3) mg/dL AST 71 H (14-36) U/L Alkaline Phosphatase 362 H (38-126) U/L Total Protein 6.1 L (6.3-8.2) g/dL Albumin 2.0 L (3.5-5.0) g/dL Urine Appearance Turbid H (Clear) Urine Protein 1+ H (Negative) Urine Glucose (UA) 3+ H (Negative) Urine Blood Small H (Negative) Ur Leukocyte Esterase Large H (Negative) Urine RBC >182 H (0-5) /hpf Urine WBC >182 H (0-5) /hpf Urine WBC Clumps Many H (None) /hpf Urine Mucus Rare H (None) /hpf Urine Yeast (Budding) Many H (None) /hpf 01/16/25 01/16/25 01/16/25 Range/Units 13:56 14:28 15:31 WBC (4.50-10.00) 10*3/uL Immature Gran # (0.00-0.04) 10*3/uL Neutrophils # (1.80-7.70) 10*3/uL Monocytes # (0.20-1.00) 10*3/uL Eosinophils # (0.04-0.35) 10*3/uL INR 1.2 H (<1.2) ABG pCO2 33 L (35-45) mmHg ABG pO2 77 L (83-108) mmHg Sodium (137-145) mmol/L Potassium (3.5-5.1) mmol/L Carbon Dioxide (22-30) mmol/L BUN (7-17) mg/dL Glucose (74-99) mg/dL Plasma Lactic Acid Rich 3.2 H* (0.7-2.0) mmol/L Calcium (8.4-10.2) mg/dL Magnesium (1.6-2.3) mg/dL AST (14-36) U/L Alkaline Phosphatase (38-126) U/L Total Protein (6.3-8.2) g/dL Albumin (3.5-5.0) g/dL Urine Appearance (Clear) Urine Protein (Negative) Urine Glucose (UA) (Negative) Urine Blood (Negative) Ur Leukocyte Esterase (Negative) Urine RBC (0-5) /hpf Urine WBC (0-5) /hpf Urine WBC Clumps (None) /hpf Urine Mucus (None) /hpf Urine Yeast (Budding) (None) /hpf Assessment and Plan (1) UTI (urinary tract infection) Current Visit: Yes Status: Acute Code(s): N39.0 - URINARY TRACT INFECTION, SITE NOT SPECIFIED SNOMED Code(s): 54069375 (2) Pneumonia Current Visit: Yes Status: Acute Code(s): J18.9 - PNEUMONIA, UNSPECIFIED ORGANISM SNOMED Code(s): 134794782 (3) Sepsis Current Visit: Yes Status: Acute Code(s): A41.9 - SEPSIS, UNSPECIFIED ORGANISM SNOMED Code(s): 21411878 Plan: 1patient with multiple comorbidity presented to hospital with mental status changes in this patient noted to be tachycardic and did have elevated white count that will meet criteria for SIRS/sepsis and concern for possible component of UTI as well as pneumonia, though the main etiology of her illness is the large PE seen on the CTA being managed by cardiology and pulmonary services 2-patient with reported allergy to Augmentin being a diarrhea and not a true allergy 3-blood and urine cultures have been requested we will obtain sputum for Gram stain and culture 4-patient will be broadly treated with Zosyn while waiting for the workup to be completed We will follow on clinical condition and cultures to further adjust medication if needed Thank you for this consultation we will follow the patient along with you Dictation was produced using [employer] dictation software. please excuse any grammatical, word or spelling errors. Time with Patient: Greater than 30
--- NOTE | 2025-01-17 07:57 | US ---
EXAMINATION TYPE: US venous doppler duplex LE BI DATE OF EXAM: 01/17/2025 7:46 AM COMPARISON: NONE CLINICAL INDICATION: Female, 69 years old with history of rule out DVT; Severe pitting edema pain. Ex am extremely limited. , Pain TECHNIQUE: The lower extremity deep venous system is examined utilizing real time linear array sonog ashish with graded compression, color doppler sonography, and spectral doppler. SIDE PERFORMED: Bilateral FINDINGS: VESSELS IMAGED: Common Femoral Vein Deep Femoral Vein Greater Saphenous Vein * Femoral Vein Popliteal Vein Small Saphenous Vein * Proximal Calf Veins (* superficial vessels) Right Leg: severe pitting edema unable to penetrate vessels not visualized. Patient in extreme pain t o touch. Left Leg: severe pitting edema unable to penetrate vessels not visualized. Patient in extreme pain t o touch. IMPRESSION: Nondiagnostic exam due to severe pitting edema unable to penetrate vessels not visualized. Patient in extreme pain to touch. [facility], , 01/17/2025 7:54 AM
[2025-01-17] MEDS: FUROSEMIDE 10 MG/ML 2 ML VIAL IV STA (09:13)
--- NOTE | 2025-01-17 11:35 | P.CRDCN ---
History of Present Illness Consult date: 01/17/25 Reason for Consult (text): PE, ? EKOS History of present illness: This is a 69-year-old female patient of history of persistent atrial fibrilla tion, hypertension, hyperlipidemia, GERD. Patient was brought into the emergency center due to altered mental status. Patient is unable to provide any information at this time. She was found to have a large filling defect in the right main pulmonary artery and we have been asked to evaluate the patient for EKOS. It is unclear whether patient has been taking Eliquis. Apparently from the staff family has stated that the patient is taking Eliquis. Patient was last seen in the office on 12/02/2024 and at that time Eliquis was on hold because of bleeding. Heart rate 146, blood pressure 91/67. Patient has been started on IV antibiotics, IV heparin. Patient is seen today in the emergency center waiting for a bed on the cardiac stepdown unit. -EKG: Atrial fibrillation with ventricular rate of 126 bpm. -Chest x-ray: Nonspecific infiltrate right mid and right lower lung zone with a degree of patchy density left lateral lung base which appears somewhat nodular. Underlying mass is not excluded. There is also right sided pleural effusion. -CTA chest: Large pulmonary embolism within the right mainstem bronchus with additional extension into the right middle lobe segments and subsegmental pulmonary arteries. Findings concerning for possible right heart strain with dilated main pulmonary artery and reflux of contrast in the IVC. Large right pleural effusion with atelectasis of the right middle and lower lobes. Patchy airspace opacities within the right middle lobe which may represent superimposed infectious process versus developing pulmonary infarcts. -Venous duplex bilateral lower extremities revealed nondiagnostic exam due to severe pitting edema -Laboratory studies: WBC 33.5, hemoglobin 13.1, INR 1.3. Sodium 129, potassium 5.6, BUN 41 creatinine 1.0. Most recent lactic acid 3.5. Calcium 7.7. Alkaline phosphatase 330, AST 107. proBNP 7310. Troponin negative x 1. UA positive for UTI. -Home cardiac medications: Eliquis 2.5 mg twice daily, atorvastatin 20 mg daily, digoxin 125 mcg daily, Jardiance 10 mg daily, Lasix 20 mg every 2 days, metoprolol succinate 50 mg daily, spironolactone 25 mg every 2 days. -Echocardiogram performed in 2013 revealed EF of 40 to 45%, mild mitral regurgitation. Aortic valve was not well-visualized. Review Of Systems: At the time of my exam: Patient is unable to provide due to mental status changes Physical examination: Gen: This is 69-year-old female appears to be in no acute distress. VS: reviewed HEENT: Head is atraumatic, normocephalic. Pupils equal, round. Sclerae is anicteric. NECK: Supple. No JVD. LUNGS: Clear to auscultation. No wheezes or rhonchi. No intercostal retractions. HEART: Irregular rate and rhythm. No murmur. ABDOMEN: Soft No tenderness. EXTREMITIES: Severe bilateral lower extremity edema. No calf tenderness. Assessment: Acute pulmonary embolism Right sided heart strain on CAT scan Large right sided pleural effusion Acute hypoxic respiratory failure Persistent atrial fibrillation, unclear if patient was taking Eliquis as it was on hold on last office visit 12/02 due to bleeding Metabolic encephalopathy Lactic acidosis Urinary tract infection Hyponatremia Hyperkalemia GERD Sacral decubitus ulcer Morbid obesity with BMI of 43 Plan: Resume patient's home cardiac medications 1 dose of IV Lasix 20 mg Maintain patient on heparin drip No plan for EKOS as patient is a poor candidate for intervention Obtain 2-D echocardiogram and Doppler study to assess cardiac structure and function Further recommendations to follow based upon clinical course Thank you kindly for this consultation. Nurse practitioner note has been reviewed, I agree with documented findings and plan of care. Patient was seen and examined. Past Medical History Past Medical History: Asthma, GERD/Reflux, Hypertension Additional Past Medical History / Comment(s): ARTHRITIS, MUSCLE SPAMS, NERVE PAIN NUMBNESS TOES AND HANDS, LEFT SHOULDER STIFFNESS History of Any Multi-Drug Resistant Organisms: None Reported Past Surgical History: Appendectomy, Tonsillectomy Additional Past Surgical History / Comment(s): RIGHT BREAST BIOPSY/ABCESS ABD REMOVED 2 TIMES AGE 29S Past Anesthesia/Blood Transfusion Reactions: No Reported Reaction Past Psychological History: No Psychological Hx Reported Past Drug Use History: None Reported - Past Family History Mother Family Medical History: CVA/TIA, Diabetes Mellitus, Hypertension Additional Family Medical History / Comment(s): ARTHRITIS Father Additional Family Medical History / Comment(s): SUDDENLY AGE 59 EMPHYSEMA AND GANGRENE COLON Brother(s) Additional Family Medical History / Comment(s): HEART STENTS AND OPEN HEART SURGERY Sister(s) Additional Family Medical History / Comment(s): OSTEOPOROSIS Medications and Allergies Home Medications Medication Instructions Recorded Confirmed Type Spironolactone [Aldactone] 25 mg PO Q2D 01/01/14 01/16/25 History traMADol HCl [Ultram] 50 - 100 mg PO TID PRN 01/01/14 01/16/25 History Albuterol Sulfate [Albuterol 2 puff PO RT-Q4H PRN 01/16/25 01/16/25 History Sulfate Hfa] Apixaban [Eliquis] 2.5 mg PO BID 01/16/25 01/16/25 History Atorvastatin [Lipitor] 20 mg PO DAILY 01/16/25 01/16/25 History Baclofen 10 mg PO TID 01/16/25 01/16/25 History Betamethasone Valerate [Luxiq 0.1%] 1 applic TOPICAL DAILY PRN 01/16/25 01/16/25 History Cholecalciferol [Vitamin D3 (25 50 mcg PO DAILY 01/16/25 01/16/25 History Mcg = 1000 Iu)] Desenex 2% Powder 1 applic TOPICAL BID 01/16/25 01/16/25 History Digoxin [Digitek] 125 mcg PO DAILY 01/16/25 01/16/25 History Empagliflozin [Jardiance] 10 mg PO DAILY 01/16/25 01/16/25 History Furosemide [Lasix] 20 mg PO Q2D 01/16/25 01/16/25 History Gabapentin [Neurontin] 300 mg PO TID 01/16/25 01/16/25 History Metoprolol Succinate [Toprol XL] 50 mg PO DAILY 01/16/25 01/16/25 History Mirabegron [Mirabegron ER] 50 mg PO DAILY 01/16/25 01/16/25 History Multivitamins, Thera [Multivitamin 1 tab PO DAILY 01/16/25 01/16/25 History (formulary)] Mupirocin 2% Oint [Bactroban 2% 1 applic TOPICAL DAILY 01/16/25 01/16/25 History Oint] Omeprazole [PriLOSEC] 40 mg PO DAILY 01/16/25 01/16/25 History allopurinoL [Zyloprim] 100 mg PO DAILY 01/16/25 01/16/25 History Allergies Allergy/AdvReac Type Severity Reaction Status Date / Time amoxicillin trihydrate AdvReac Diarrhea Verified 01/16/25 15:38 [From Augmentin] potassium clavulanate AdvReac Diarrhea Verified 01/16/25 15:38 [From Augmentin] Physical Exam Vitals: Vital Signs Temp Pulse Resp BP Pulse Ox 01/17/25 04:31 120 H 19 99/67 98 01/17/25 03:10 98.7 F 121 H 19 121/75 96 01/17/25 02:07 121 H 19 104/87 96 01/16/25 23:55 116 H 20 112/40 98 01/16/25 23:00 129 H 21 102/67 96 01/16/25 22:00 113 H 19 99/55 96 01/16/25 21:00 120 H 20 119/99 96 01/16/25 20:07 110 H 01/16/25 19:57 128 H 01/16/25 19:28 124 H 21 120/92 93 L 01/16/25 18:54 116 H 20 121/94 94 L 01/16/25 16:13 123 H 19 113/90 94 L 01/16/25 15:35 22 01/16/25 13:43 131 H 20 150/99 97 01/16/25 13:09 98.5 F 122 H 22 101/60 79 L Intake and Output 01/16/25 01/17/25 01/17/25 22:59 06:59 14:59 Intake Total 250.000 Output Total 150 Balance 100.000 Intake: Intake, IV Titration 250.000 Amount Heparin Sod,Pork in 0.45% 250.000 NaCl 25,000 unit In 0.45 % NaCl 1 250ml.bag @ 18 UNITS/KG/HR 22.126 mls/hr IV .[id number] [facility] Rx#: [id number] Output: Urine 150 Uretheral (Richard) 150 Results 01/17/25 03:05 01/17/25 03:05 Cardiac Enzymes 01/16/25 01/16/25 01/17/25 Range/Units 13:56 14:04 03:05 AST 71 H 107 H (14-36) U/L Troponin I 0.014 (0.000-0.034) ng/mL Coagulation 01/16/25 01/16/25 01/17/25 Range/Units 15:31 20:12 01:24 PT 12.5 13.6 H (10.0-12.5) sec APTT 23.6 26.7 (22.0-30.0) sec CBC 01/16/25 01/17/25 Range/Units 13:56 03:05 WBC 26.61 H 33.55 H (4.50-10.00) 10*3/uL RBC 4.38 4.36 (4.10-5.20) 10*6/uL Hgb 13.3 13.1 (12.0-15.0) g/dL Hct 39.7 39.0 (37.2-46.3) % Plt Count 250 270 (140-440) 10*3/uL Comprehensive Metabolic Panel 01/16/25 01/17/25 Range/Units 13:56 03:05 Sodium 129 L 129 L (137-145) mmol/L Potassium 5.6 H 5.6 H (3.5-5.1) mmol/L Chloride 100 100 (98-107) mmol/L Carbon Dioxide 17 L 18 L (22-30) mmol/L BUN 38 H 41 H (7-17) mg/dL Creatinine 0.76 1.00 (0.52-1.04) mg/dL Glucose 114 H 109 H (74-99) mg/dL Calcium 7.8 L 7.7 L (8.4-10.2) mg/dL AST 71 H 107 H (14-36) U/L ALT 25 24 (4-34) U/L Alkaline Phosphatase 362 H 330 H (38-126) U/L Total Protein 6.1 L 6.0 L (6.3-8.2) g/dL Albumin 2.0 L 2.0 L (3.5-5.0) g/dL Current Medications Generic Name Dose Route Start Last Admin Trade Name Freq PRN Reason Stop Dose Admin Hydrocodone Bitart/Acetaminophen 1 each 01/16/25 20:05 01/16/25 20:30 Hydrocodone/Apap 5-325mg 1 Each Tab PO 1 each Q6HR PRN Administration Pain Albuterol/Ipratropium 3 ml 01/16/25 20:00 01/16/25 19:56 Ipratropium-Albuterol 3 Ml Neb INHALATION 3 ml RT-QID SAUMYA Administration Albuterol/Ipratropium 3 ml 01/16/25 16:32 Ipratropium-Albuterol 3 Ml Neb INHALATION RT-QID PRN Shortness Of Breath Or Wheezing Allopurinol 100 mg 01/17/25 09:00 Allopurinol 100 Mg Tab PO DAILY [facility] Atorvastatin Calcium 20 mg 01/17/25 09:00 Atorvastatin 20 Mg Tab PO DAILY [facility] Azithromycin 500 mg 01/17/25 09:00 Azithromycin 500 Mg Tab PO 01/18/25 09:01 DAILY [facility] Protocol Baclofen 10 mg 01/16/25 22:00 01/16/25 23:50 Baclofen 10 Mg Tab PO Not Given TID [facility] Dapagliflozin 5 mg 01/17/25 09:00 Dapagliflozin Propanediol 5 Mg Tablet PO DAILY [facility] Digoxin 125 mcg 01/17/25 09:00 Digoxin 125 Mcg Tab PO DAILY [facility] Heparin Sodium (Porcine) 0 unit 01/16/25 18:44 01/17/25 02:15 Heparin Sodium 1,000 Un/Ml (10ml Vl) IV 9,832 unit PER PROTOCOL PRN Administration Low PTT Protocol Lactated Ringer's 1,000 mls @ 75 mls/hr 01/16/25 13:15 01/17/25 01:01 Lactated Ringers IV 75 mls/hr .[id number] [facility] Administration Piperacillin Sod/Tazobactam 100 mls @ 25 mls/hr 01/16/25 16:45 01/16/25 23:48 Sod 3.375 gm/ Sodium Chloride IVPB 25 mls/hr Q8HR SAUMYA Administration Protocol Heparin Sodium/Sodium Chloride 250 mls @ 22.126 mls/hr 01/16/25 18:45 01/17/25 07:30 25,000 unit/ Sodium Chloride IV 22 units/kg/hr .[id number] [facility] 27.043 mls/hr Administration Protocol 18 UNITS/KG/HR Metoprolol Succinate 50 mg 01/17/25 09:00 Metoprolol Succinate (Er) 50 Mg Tab.Er.24h PO DAILY [facility] Miscellaneous Information 1 each 01/16/25 15:18 Pneumonia Protocol Utilized 1 Each Misc PO ONCE PRN Per Protocol Morphine Sulfate 2 mg 01/17/25 06:51 01/17/25 06:15 Morphine Sulfate 2 Mg/Ml Syringe IVP 2 mg Q6HR PRN Administration Breakthrough Pain Intake and Output 01/16/25 01/17/25 01/17/25 22:59 06:59 14:59 Intake Total 250.000 Output Total 150 Balance 100.000 Intake: Intake, IV Titration 250.000 Amount Heparin Sod,Pork in 0.45% 250.000 NaCl 25,000 unit In 0.45 % NaCl 1 250ml.bag @ 18 UNITS/KG/HR 22.126 mls/hr IV .[id number] [facility] Rx#: [id number] Output: Urine 150 Uretheral (Richard) 150 01/17/25 03:05 01/17/25 03:05
[2025-01-17] MEDS: METOPROLOL TARTRATE 5 MG/5 ML VIAL IVP PRN (11:50)
--- NOTE | 2025-01-17 12:24 | P.CONS ---
History of Present Illness - Reason for Consult Consult date: 01/17/25 wound care - History of Present Illness This is a 69-year-old patient who is homebound who presented to the emergency room for mental status change. Patient is being seen in the ER for a decubitus ulcer to the sacrum. Per nurses notes the son takes care of of the mother and states that he recently had an infection and finished antibiotics. Patient states the wounds are painful. Unable to assess due to the patient's condition at this time. Review of systems: Unable to obtain due to patient's condition Physical exam: General Appearance: Alert, cooperative, no distress, appears stated age. Skin: See HPI all other Skin color, texture, tugor normal, no rashes or lesions. Neurologic: Alert oriented x 1 Assessment: 1. Decubitus ulcer Plan: 1. Apply honey gel to ulceration and cover with bordered foam. Change Thursday. Turn patient every 2 hours. Utilize offloading surfaces. Thank for the consultation any questions please contact the wound care center DNP note has been reviewed and discussed with Dr. Sesay and the impression and plan of care has been directed as dictated. Past Medical History Past Medical History: Asthma, GERD/Reflux, Hypertension Additional Past Medical History / Comment(s): ARTHRITIS, MUSCLE SPAMS, NERVE PAIN NUMBNESS TOES AND HANDS, LEFT SHOULDER STIFFNESS History of Any Multi-Drug Resistant Organisms: None Reported Past Surgical History: Appendectomy, Tonsillectomy Additional Past Surgical History / Comment(s): RIGHT BREAST BIOPSY/ABCESS ABD REMOVED 2 TIMES AGE 29S Past Anesthesia/Blood Transfusion Reactions: No Reported Reaction Past Psychological History: No Psychological Hx Reported Past Drug Use History: None Reported - Past Family History Mother Family Medical History: CVA/TIA, Diabetes Mellitus, Hypertension Additional Family Medical History / Comment(s): ARTHRITIS Father Additional Family Medical History / Comment(s): SUDDENLY AGE 59 EMPHYSEMA AND GANGRENE COLON Brother(s) Additional Family Medical History / Comment(s): HEART STENTS AND OPEN HEART SURGERY Sister(s) Additional Family Medical History / Comment(s): OSTEOPOROSIS Medications and Allergies Home Medications Medication Instructions Recorded Confirmed Type Spironolactone [Aldactone] 25 mg PO Q2D 01/01/14 01/16/25 History traMADol HCl [Ultram] 50 - 100 mg PO TID PRN 01/01/14 01/16/25 History Albuterol Sulfate [Albuterol 2 puff PO RT-Q4H PRN 01/16/25 01/16/25 History Sulfate Hfa] Apixaban [Eliquis] 2.5 mg PO BID 01/16/25 01/16/25 History Atorvastatin [Lipitor] 20 mg PO DAILY 01/16/25 01/16/25 History Baclofen 10 mg PO TID 01/16/25 01/16/25 History Betamethasone Valerate [Luxiq 0.1%] 1 applic TOPICAL DAILY PRN 01/16/25 01/16/25 History Cholecalciferol [Vitamin D3 (25 50 mcg PO DAILY 01/16/25 01/16/25 History Mcg = 1000 Iu)] Desenex 2% Powder 1 applic TOPICAL BID 01/16/25 01/16/25 History Digoxin [Digitek] 125 mcg PO DAILY 01/16/25 01/16/25 History Empagliflozin [Jardiance] 10 mg PO DAILY 01/16/25 01/16/25 History Furosemide [Lasix] 20 mg PO Q2D 01/16/25 01/16/25 History Gabapentin [Neurontin] 300 mg PO TID 01/16/25 01/16/25 History Metoprolol Succinate [Toprol XL] 50 mg PO DAILY 01/16/25 01/16/25 History Mirabegron [Mirabegron ER] 50 mg PO DAILY 01/16/25 01/16/25 History Multivitamins, Thera [Multivitamin 1 tab PO DAILY 01/16/25 01/16/25 History (formulary)] Mupirocin 2% Oint [Bactroban 2% 1 applic TOPICAL DAILY 01/16/25 01/16/25 History Oint] Omeprazole [PriLOSEC] 40 mg PO DAILY 01/16/25 01/16/25 History allopurinoL [Zyloprim] 100 mg PO DAILY 01/16/25 01/16/25 History Allergies Allergy/AdvReac Type Severity Reaction Status Date / Time amoxicillin trihydrate AdvReac Diarrhea Verified 01/16/25 15:38 [From Augmentin] potassium clavulanate AdvReac Diarrhea Verified 01/16/25 15:38 [From Augmentin] Physical Exam Vitals: Vital Signs Temp Pulse Resp BP Pulse Ox 07/01/25 12:08 133 H 110/66 01/17/25 12:00 135 H 70/32 01/17/25 11:59 134 H 93/52 01/17/25 11:50 137 H 70/44 96 01/17/25 11:27 141 H 22 96/59 96 01/17/25 10:54 144 H 20 90/71 97 01/17/25 10:21 137 H 18 90/61 95 01/17/25 09:54 134 H 01/17/25 09:45 140 H 01/17/25 09:18 98.6 F 142 H 22 87/71 96 01/17/25 04:31 120 H 19 99/67 98 01/17/25 03:10 98.7 F 121 H 19 121/75 96 01/17/25 02:07 121 H 19 104/87 96 01/16/25 23:55 116 H 20 112/40 98 01/16/25 23:00 129 H 21 102/67 96 01/16/25 22:00 113 H 19 99/55 96 01/16/25 21:00 120 H 20 119/99 96 01/16/25 20:07 110 H 01/16/25 19:57 128 H 01/16/25 19:28 124 H 21 120/92 93 L 01/16/25 18:54 116 H 20 121/94 94 L 01/16/25 16:13 123 H 19 113/90 94 L 01/16/25 15:35 22 01/16/25 13:43 131 H 20 150/99 97 01/16/25 13:09 98.5 F 122 H 22 101/60 79 L Intake and Output 01/16/25 01/17/25 01/17/25 22:59 06:59 14:59 Intake Total 250.000 Output Total 150 100 Balance 100.000 -100 Intake: Intake, IV Titration 250.000 Amount Heparin Sod,Pork in 0.45% 250.000 NaCl 25,000 unit In 0.45 % NaCl 1 250ml.bag @ 18 UNITS/KG/HR 22.126 mls/hr IV .[id number] [facility] Rx#: [id number] Output: Urine 150 100 Uretheral (Richard) 150 100 Results CBC & Chem 7: 01/17/25 03:05 01/17/25 03:05 Labs: Abnormal Lab Results - Last 24 Hours (Table) 01/16/25 01/16/25 01/16/25 Range/Units 13:56 13:56 13:56 WBC 26.61 H (4.50-10.00) 10*3/uL Immature Gran # 0.50 H (0.00-0.04) 10*3/uL Neutrophils # 22.03 H (1.80-7.70) 10*3/uL Neutrophils # (Manual) (1.3-7.7) k/uL Monocytes # 1.81 H (0.20-1.00) 10*3/uL Eosinophils # 0.03 L (0.04-0.35) 10*3/uL PT (10.0-12.5) sec INR (<1.2) ABG pCO2 (35-45) mmHg ABG pO2 (83-108) mmHg Sodium 129 L (137-145) mmol/L Potassium 5.6 H (3.5-5.1) mmol/L Carbon Dioxide 17 L (22-30) mmol/L BUN 38 H (7-17) mg/dL Glucose 114 H (74-99) mg/dL Plasma Lactic Acid Rich (0.7-2.0) mmol/L Calcium 7.8 L (8.4-10.2) mg/dL Magnesium 2.5 H (1.6-2.3) mg/dL AST 71 H (14-36) U/L Alkaline Phosphatase 362 H (38-126) U/L Total Protein 6.1 L (6.3-8.2) g/dL Albumin 2.0 L (3.5-5.0) g/dL Urine Appearance Turbid H (Clear) Urine Protein 1+ H (Negative) Urine Glucose (UA) 3+ H (Negative) Urine Blood Small H (Negative) Ur Leukocyte Esterase Large H (Negative) Urine RBC >182 H (0-5) /hpf Urine WBC >182 H (0-5) /hpf Urine WBC Clumps Many H (None) /hpf Urine Mucus Rare H (None) /hpf Urine Yeast (Budding) Many H (None) /hpf 01/16/25 01/16/25 01/16/25 Range/Units 13:56 14:28 15:31 WBC (4.50-10.00) 10*3/uL Immature Gran # (0.00-0.04) 10*3/uL Neutrophils # (1.80-7.70) 10*3/uL Neutrophils # (Manual) (1.3-7.7) k/uL Monocytes # (0.20-1.00) 10*3/uL Eosinophils # (0.04-0.35) 10*3/uL PT (10.0-12.5) sec INR 1.2 H (<1.2) ABG pCO2 33 L (35-45) mmHg ABG pO2 77 L (83-108) mmHg Sodium (137-145) mmol/L Potassium (3.5-5.1) mmol/L Carbon Dioxide (22-30) mmol/L BUN (7-17) mg/dL Glucose (74-99) mg/dL Plasma Lactic Acid Rich 3.2 H* (0.7-2.0) mmol/L Calcium (8.4-10.2) mg/dL Magnesium (1.6-2.3) mg/dL AST (14-36) U/L Alkaline Phosphatase (38-126) U/L Total Protein (6.3-8.2) g/dL Albumin (3.5-5.0) g/dL Urine Appearance (Clear) Urine Protein (Negative) Urine Glucose (UA) (Negative) Urine Blood (Negative) Ur Leukocyte Esterase (Negative) Urine RBC (0-5) /hpf Urine WBC (0-5) /hpf Urine WBC Clumps (None) /hpf Urine Mucus (None) /hpf Urine Yeast (Budding) (None) /hpf 01/16/25 01/16/25 01/16/25 Range/Units 17:01 20:12 20:20 WBC (4.50-10.00) 10*3/uL Immature Gran # (0.00-0.04) 10*3/uL Neutrophils # (1.80-7.70) 10*3/uL Neutrophils # (Manual) (1.3-7.7) k/uL Monocytes # (0.20-1.00) 10*3/uL Eosinophils # (0.04-0.35) 10*3/uL PT 13.6 H (10.0-12.5) sec INR 1.3 H (<1.2) ABG pCO2 (35-45) mmHg ABG pO2 (83-108) mmHg Sodium (137-145) mmol/L Potassium (3.5-5.1) mmol/L Carbon Dioxide (22-30) mmol/L BUN (7-17) mg/dL Glucose (74-99) mg/dL Plasma Lactic Acid Rich 3.5 H* 4.1 H* (0.7-2.0) mmol/L Calcium (8.4-10.2) mg/dL Magnesium (1.6-2.3) mg/dL AST (14-36) U/L Alkaline Phosphatase (38-126) U/L Total Protein (6.3-8.2) g/dL Albumin (3.5-5.0) g/dL Urine Appearance (Clear) Urine Protein (Negative) Urine Glucose (UA) (Negative) Urine Blood (Negative) Ur Leukocyte Esterase (Negative) Urine RBC (0-5) /hpf Urine WBC (0-5) /hpf Urine WBC Clumps (None) /hpf Urine Mucus (None) /hpf Urine Yeast (Budding) (None) /hpf 01/16/25 01/17/25 01/17/25 Range/Units 23:23 03:05 03:05 WBC 33.55 H (4.50-10.00) 10*3/uL Immature Gran # 0.55 H (0.00-0.04) 10*3/uL Neutrophils # (1.80-7.70) 10*3/uL Neutrophils # (Manual) 28.51 H (1.3-7.7) k/uL Monocytes # (0.20-1.00) 10*3/uL Eosinophils # (0.04-0.35) 10*3/uL PT (10.0-12.5) sec INR (<1.2) ABG pCO2 (35-45) mmHg ABG pO2 (83-108) mmHg Sodium 129 L (137-145) mmol/L Potassium 5.6 H (3.5-5.1) mmol/L Carbon Dioxide 18 L (22-30) mmol/L BUN 41 H (7-17) mg/dL Glucose 109 H (74-99) mg/dL Plasma Lactic Acid Rich 3.1 H* (0.7-2.0) mmol/L Calcium 7.7 L (8.4-10.2) mg/dL Magnesium (1.6-2.3) mg/dL AST 107 H (14-36) U/L Alkaline Phosphatase 330 H (38-126) U/L Total Protein 6.0 L (6.3-8.2) g/dL Albumin 2.0 L (3.5-5.0) g/dL Urine Appearance (Clear) Urine Protein (Negative) Urine Glucose (UA) (Negative) Urine Blood (Negative) Ur Leukocyte Esterase (Negative) Urine RBC (0-5) /hpf Urine WBC (0-5) /hpf Urine WBC Clumps (None) /hpf Urine Mucus (None) /hpf Urine Yeast (Budding) (None) /hpf 01/17/25 01/17/25 01/17/25 Range/Units 03:05 06:13 09:45 WBC (4.50-10.00) 10*3/uL Immature Gran # (0.00-0.04) 10*3/uL Neutrophils # (1.80-7.70) 10*3/uL Neutrophils # (Manual) (1.3-7.7) k/uL Monocytes # (0.20-1.00) 10*3/uL Eosinophils # (0.04-0.35) 10*3/uL PT (10.0-12.5) sec INR (<1.2) ABG pCO2 (35-45) mmHg ABG pO2 (83-108) mmHg Sodium (137-145) mmol/L Potassium (3.5-5.1) mmol/L Carbon Dioxide (22-30) mmol/L BUN (7-17) mg/dL Glucose (74-99) mg/dL Plasma Lactic Acid Rich 2.6 H* 4.0 H* 3.5 H* (0.7-2.0) mmol/L Calcium (8.4-10.2) mg/dL Magnesium (1.6-2.3) mg/dL AST (14-36) U/L Alkaline Phosphatase (38-126) U/L Total Protein (6.3-8.2) g/dL Albumin (3.5-5.0) g/dL Urine Appearance (Clear) Urine Protein (Negative) Urine Glucose (UA) (Negative) Urine Blood (Negative) Ur Leukocyte Esterase (Negative) Urine RBC (0-5) /hpf Urine WBC (0-5) /hpf Urine WBC Clumps (None) /hpf Urine Mucus (None) /hpf Urine Yeast (Budding) (None) /hpf Assessment and Plan (1) Decubitus ulcer of sacral area Current Visit: Yes Status: Acute Code(s): L89.159 - PRESSURE ULCER OF SACRAL REGION, UNSPECIFIED STAGE SNOMED Code(s): 732265745
[2025-01-17] MEDS: AZITHROMYCIN 500 MG TAB PO SCH (12:29)
[2025-01-17] MEDS: ATORVASTATIN 20 MG TAB PO SCH (12:29)
[2025-01-17] MEDS: DIGOXIN 125 MCG TAB PO SCH (12:37)
[2025-01-17] MEDS: METOPROLOL SUCCINATE (ER) 50 MG TAB.ER.24H PO SCH (12:37)
[2025-01-17] MEDS: DAPAGLIFLOZIN PROPANEDIOL 5 MG TABLET PO SCH (12:37)
[2025-01-17] MEDS: FLUCONAZOLE 100 MG TAB PO ONE (12:38)
[2025-01-17] MEDS: DEXTROSE 5% IN WATER 100 ML with AMIODARONE 150 MG IV ONE (12:40)
[2025-01-17] MEDS: NOREPINEPHRINE 8 MG in SODIUM CHLORIDE 0.9% 250 ML IV SCH (12:48)
[2025-01-17 12:49] LABS: Basophils # (A) 0.10 10*3/uL (0.00-0.10); Basophils % (A) 0.3 %; Eosinophils # (A) 0.01 10*3/uL (0.04-0.35); Eosinophils % (A) 0.0 %; HCT 42.8 % (37.2-46.3); HGB 13.9 g/dL (12.0-15.0); Lymphocytes # (A) 2.16 10*3/uL (0.90-5.00); Lymphocytes % (A) 6.0 %; MCH 29.8 pg (27.0-32.0); MCHC 32.5 g/dL (32.0-37.0); MCV 91.6 fL (80.0-97.0); Monocytes # (A) 2.10 10*3/uL (0.20-1.00); Monocytes % (A) 5.9 %; Neutrophils # (A) 30.40 10*3/uL (1.80-7.70); Neutrophils % (A) 85.0 %; Platelet Count 306 10*3/uL (140-440); RBC 4.67 10*6/uL (4.10-5.20); RDW 20.4 % (11.5-14.5); WBC 35.77 10*3/uL (4.50-10.00)
[2025-01-17] MEDS: AMIODARONE 360 MG in DEXTROSE 5% IN WATER 200 ML IV ONE (12:49)
--- NOTE | 2025-01-17 13:03 | P.PN ---
Subjective Progress Note Date: 01/17/25 Principal diagnosis: Reason for follow-up is leukocytosis/sepsis Patient is a 69-year-old female with a past medical history significant for reflux hypertension asthma, patient has been brought into the hospital by EMS after the patient was noticed to be altered confused at home patient complaining of pain all over her body, patient did have a elevated white count probably this consultation. On today's evaluation that is 01/17/2025, Patient is afebrile this morning patient currently on 6 L nasal oxygen the patient is sleepy did not answer any question no vomiting diarrhea or any other changes reported by the nursing staff. Patient white count is 35.77 lactic acid is elevated creatinine is 1.0 cultures are currently pending Objective - Vital Signs Vital signs: Vital Signs Temp 98.6 F 01/17/25 09:18 Pulse 142 H 01/17/25 09:18 Resp 22 01/17/25 09:18 BP 87/71 01/17/25 09:18 Pulse Ox 96 01/17/25 09:18 FiO2 Intake & Output 01/16/25 01/17/25 01/17/25 18:59 06:59 18:59 Intake Total 250.000 Output Total 150 Balance 100.000 Weight 122.924 kg Intake: Intake, IV Titration 250.000 Amount Heparin Sod,Pork in 0.45% 250.000 NaCl 25,000 unit In 0.45 % NaCl 1 250ml.bag @ 18 UNITS/KG/HR 22.126 mls/hr IV .[id number] [facility] Rx#: [id number] Output: Urine 150 Uretheral (Richard) 150 - Exam GENERAL DESCRIPTION: An elderly female lying in bed in no distress RESPIRATORY SYSTEM: Unlabored breathing , decreased breath sounds at bases HEART: S1 S2 regular rate and rhythm , ABDOMEN: Soft , no tenderness Patient did have extensive excoriation of the breast fold area and did have a stage II sacral pressure ulcer - Labs CBC & Chem 7: 01/18/25 01:35 01/17/25 03:05 Labs: Abnormal Lab Results - Last 24 Hours (Table) 01/16/25 01/16/25 01/16/25 Range/Units 13:56 13:56 13:56 WBC 26.61 H (4.50-10.00) 10*3/uL Immature Gran # 0.50 H (0.00-0.04) 10*3/uL Neutrophils # 22.03 H (1.80-7.70) 10*3/uL Neutrophils # (Manual) (1.3-7.7) k/uL Monocytes # 1.81 H (0.20-1.00) 10*3/uL Eosinophils # 0.03 L (0.04-0.35) 10*3/uL PT (10.0-12.5) sec INR (<1.2) ABG pCO2 (35-45) mmHg ABG pO2 (83-108) mmHg Sodium 129 L (137-145) mmol/L Potassium 5.6 H (3.5-5.1) mmol/L Carbon Dioxide 17 L (22-30) mmol/L BUN 38 H (7-17) mg/dL Glucose 114 H (74-99) mg/dL Plasma Lactic Acid Rich (0.7-2.0) mmol/L Calcium 7.8 L (8.4-10.2) mg/dL Magnesium 2.5 H (1.6-2.3) mg/dL AST 71 H (14-36) U/L Alkaline Phosphatase 362 H (38-126) U/L Total Protein 6.1 L (6.3-8.2) g/dL Albumin 2.0 L (3.5-5.0) g/dL Urine Appearance Turbid H (Clear) Urine Protein 1+ H (Negative) Urine Glucose (UA) 3+ H (Negative) Urine Blood Small H (Negative) Ur Leukocyte Esterase Large H (Negative) Urine RBC >182 H (0-5) /hpf Urine WBC >182 H (0-5) /hpf Urine WBC Clumps Many H (None) /hpf Urine Mucus Rare H (None) /hpf Urine Yeast (Budding) Many H (None) /hpf 01/16/25 01/16/25 01/16/25 Range/Units 13:56 14:28 15:31 WBC (4.50-10.00) 10*3/uL Immature Gran # (0.00-0.04) 10*3/uL Neutrophils # (1.80-7.70) 10*3/uL Neutrophils # (Manual) (1.3-7.7) k/uL Monocytes # (0.20-1.00) 10*3/uL Eosinophils # (0.04-0.35) 10*3/uL PT (10.0-12.5) sec INR 1.2 H (<1.2) ABG pCO2 33 L (35-45) mmHg ABG pO2 77 L (83-108) mmHg Sodium (137-145) mmol/L Potassium (3.5-5.1) mmol/L Carbon Dioxide (22-30) mmol/L BUN (7-17) mg/dL Glucose (74-99) mg/dL Plasma Lactic Acid Rich 3.2 H* (0.7-2.0) mmol/L Calcium (8.4-10.2) mg/dL Magnesium (1.6-2.3) mg/dL AST (14-36) U/L Alkaline Phosphatase (38-126) U/L Total Protein (6.3-8.2) g/dL Albumin (3.5-5.0) g/dL Urine Appearance (Clear) Urine Protein (Negative) Urine Glucose (UA) (Negative) Urine Blood (Negative) Ur Leukocyte Esterase (Negative) Urine RBC (0-5) /hpf Urine WBC (0-5) /hpf Urine WBC Clumps (None) /hpf Urine Mucus (None) /hpf Urine Yeast (Budding) (None) /hpf 01/16/25 01/16/25 01/16/25 Range/Units 17:01 20:12 20:20 WBC (4.50-10.00) 10*3/uL Immature Gran # (0.00-0.04) 10*3/uL Neutrophils # (1.80-7.70) 10*3/uL Neutrophils # (Manual) (1.3-7.7) k/uL Monocytes # (0.20-1.00) 10*3/uL Eosinophils # (0.04-0.35) 10*3/uL PT 13.6 H (10.0-12.5) sec INR 1.3 H (<1.2) ABG pCO2 (35-45) mmHg ABG pO2 (83-108) mmHg Sodium (137-145) mmol/L Potassium (3.5-5.1) mmol/L Carbon Dioxide (22-30) mmol/L BUN (7-17) mg/dL Glucose (74-99) mg/dL Plasma Lactic Acid Rich 3.5 H* 4.1 H* (0.7-2.0) mmol/L Calcium (8.4-10.2) mg/dL Magnesium (1.6-2.3) mg/dL AST (14-36) U/L Alkaline Phosphatase (38-126) U/L Total Protein (6.3-8.2) g/dL Albumin (3.5-5.0) g/dL Urine Appearance (Clear) Urine Protein (Negative) Urine Glucose (UA) (Negative) Urine Blood (Negative) Ur Leukocyte Esterase (Negative) Urine RBC (0-5) /hpf Urine WBC (0-5) /hpf Urine WBC Clumps (None) /hpf Urine Mucus (None) /hpf Urine Yeast (Budding) (None) /hpf 01/16/25 01/17/25 01/17/25 Range/Units 23:23 03:05 03:05 WBC 33.55 H (4.50-10.00) 10*3/uL Immature Gran # 0.55 H (0.00-0.04) 10*3/uL Neutrophils # (1.80-7.70) 10*3/uL Neutrophils # (Manual) 28.51 H (1.3-7.7) k/uL Monocytes # (0.20-1.00) 10*3/uL Eosinophils # (0.04-0.35) 10*3/uL PT (10.0-12.5) sec INR (<1.2) ABG pCO2 (35-45) mmHg ABG pO2 (83-108) mmHg Sodium 129 L (137-145) mmol/L Potassium 5.6 H (3.5-5.1) mmol/L Carbon Dioxide 18 L (22-30) mmol/L BUN 41 H (7-17) mg/dL Glucose 109 H (74-99) mg/dL Plasma Lactic Acid Rich 3.1 H* (0.7-2.0) mmol/L Calcium 7.7 L (8.4-10.2) mg/dL Magnesium (1.6-2.3) mg/dL AST 107 H (14-36) U/L Alkaline Phosphatase 330 H (38-126) U/L Total Protein 6.0 L (6.3-8.2) g/dL Albumin 2.0 L (3.5-5.0) g/dL Urine Appearance (Clear) Urine Protein (Negative) Urine Glucose (UA) (Negative) Urine Blood (Negative) Ur Leukocyte Esterase (Negative) Urine RBC (0-5) /hpf Urine WBC (0-5) /hpf Urine WBC Clumps (None) /hpf Urine Mucus (None) /hpf Urine Yeast (Budding) (None) /hpf 01/17/25 01/17/25 Range/Units 03:05 06:13 WBC (4.50-10.00) 10*3/uL Immature Gran # (0.00-0.04) 10*3/uL Neutrophils # (1.80-7.70) 10*3/uL Neutrophils # (Manual) (1.3-7.7) k/uL Monocytes # (0.20-1.00) 10*3/uL Eosinophils # (0.04-0.35) 10*3/uL PT (10.0-12.5) sec INR (<1.2) ABG pCO2 (35-45) mmHg ABG pO2 (83-108) mmHg Sodium (137-145) mmol/L Potassium (3.5-5.1) mmol/L Carbon Dioxide (22-30) mmol/L BUN (7-17) mg/dL Glucose (74-99) mg/dL Plasma Lactic Acid Rich 2.6 H* 4.0 H* (0.7-2.0) mmol/L Calcium (8.4-10.2) mg/dL Magnesium (1.6-2.3) mg/dL AST (14-36) U/L Alkaline Phosphatase (38-126) U/L Total Protein (6.3-8.2) g/dL Albumin (3.5-5.0) g/dL Urine Appearance (Clear) Urine Protein (Negative) Urine Glucose (UA) (Negative) Urine Blood (Negative) Ur Leukocyte Esterase (Negative) Urine RBC (0-5) /hpf Urine WBC (0-5) /hpf Urine WBC Clumps (None) /hpf Urine Mucus (None) /hpf Urine Yeast (Budding) (None) /hpf Assessment and Plan (1) UTI (urinary tract infection) Status: Acute Code(s): N39.0 - URINARY TRACT INFECTION, SITE NOT SPECIFIED SNOMED Code(s): 32012977 (2) Pneumonia Status: Acute Code(s): J18.9 - PNEUMONIA, UNSPECIFIED ORGANISM SNOMED Code(s): 563702786 (3) Sepsis Status: Acute Code(s): A41.9 - SEPSIS, UNSPECIFIED ORGANISM SNOMED Code(s): 73373150 Plan: 1patient with multiple comorbidity presented to hospital with mental status changes in this patient noted to be tachycardic and did have elevated white count that will meet criteria for SIRS/sepsis and concern for possible component of UTI as well as pneumonia, though the main etiology of her illness is the large PE seen on the CTA being managed by cardiology and pulmonary services 2-patient with reported allergy to Augmentin being a diarrhea and not a true allergy 3-blood and urine cultures have been obtained which are currently pending 4-patient did have extensive excoriation to the breast fold area will apply nystatin powder twice a day and also have a stage II sacral ulcer with some slough tissue apply Medihoney followed by moist dressing keep the area of the pressure discussed with the nursing staff 5-patient is being treated with Zosyn empirically while waiting for the culture to finalize and monitor clinical course closely Progress is guarded Dictation was produced using [employer] dictation software. please excuse any grammatical, word or spelling errors. Time with Patient: Less than 30
--- NOTE | 2025-01-17 15:24 | PN ---
PROGRESS NOTE DATE OF SERVICE: 01/17/2025 HISTORY OF PRESENT ILLNESS: This is a 69-year-old woman who is admitted with change in mental status and shortness of breath as well as multiple decubitus ulcers also because of hypotension. The patient had confusion also. The patient also has significant yeast infection. Also the patient is being closely monitored at this time. Levophed is being initiated. The patient will be transferred to ICU. The patient is currently full code. PAST MEDICAL HISTORY: Reviewed. REVIEW OF SYSTEMS: Fourteen-point review of systems negative except as mentioned earlier. CURRENT MEDICATIONS: Reviewed. PHYSICAL EXAMINATION: VITAL SIGNS: Pulse is 131, blood pressure 100/80, respirations 20. HEENT: Conjunctivae normal. NECK: No jugular venous distention. CARDIOVASCULAR: S1 and S2. RESPIRATIONS: Breath sounds are diminished at the bases. A few scattered rhonchi. ABDOMEN: Soft. Multiple decubitus present. DIAGNOSTIC STUDIES: EKG; possibly atrial fibrillation, fast ventricular rate. LABORATORY DATA: Reviewed. WBC 35.7. Lactic acid noted. ASSESSMENT: 1. Acute severe sepsis possibly secondary to right lower pneumonia and urinary tract infection and as well as decubitus ulcers with severe hypotension. 2. Change in mental status and acute metabolic encephalopathy secondary to sepsis. 3. Atrial fibrillation with fast ventricular rate. 4. Sacral decubitus ulcers. 5. Hyponatremia. 6. Hyperkalemia. 7. History of increased WBC. 8. History of asthma. 9. History of hypertension. 10.History of degenerative joint disease. 11.History of obesity. 12.Multiple complex medical issues. RECOMMENDATIONS: Recommend to continue current management and the patient's empiric antibiotics. The cultures are negative so far. I would recommend follow with multiple consultants. The patient is on empiric antibiotics. We will monitor the fluid electrolyte balance closely and consult Dr. Dennis. Repeat labs. Possible ICU transfer. Wound Care management. Infectious Disease evaluation. As mentioned earlier cultures are negative so far. Prognosis extremely guarded. Further recommendations to follow. MMODL / IJN: [id number] / MTDD
[2025-01-17] MEDS: NYSTATIN 100,000 UNIT/GM POWD 15 GM TOPICAL SCH (15:41)
[2025-01-17 18:10] LABS: Glucose,Whole Blood 105 mg/dL (70-110)
[2025-01-17] MEDS ORDERED: VASOPRESSIN 20 UNIT in SODIUM CHLORIDE 0.9% 50 ML IV SCH (19:00)
[2025-01-17] MEDS: SODIUM CHLORIDE 0.9% 1,000 ML IV ONE (19:05)
[2025-01-17] MEDS: AMIODARONE 450 MG in DEXTROSE 5% IN WATER 250 ML IV SCH (19:11)
[2025-01-17] MEDS: DEXMEDETOMIDINE/0.9% NACL(PMX) 400 MCG in EMPTY BAG 1 BAG IV SCH (20:38)
[2025-01-17] MEDS: VASOPRESSIN 60 UNIT in SODIUM CHLORIDE 0.9% 150 ML IV SCH (20:50)
[2025-01-17] MEDS ORDERED: HYDROmorphone 0.5 MG/0.5 ML SYRINGE IVP PRN (22:57)
[2025-01-18 00:03] VITALS: TEMP 98.5
[2025-01-18 02:47] LABS: HCT 40.4 % (37.2-46.3); HGB 12.3 g/dL (12.0-15.0); MCH 29.5 pg (27.0-32.0); MCHC 30.4 g/dL (32.0-37.0); Platelet Count 307 10*3/uL (140-440); RBC 4.17 10*6/uL (4.10-5.20); RDW 20.6 % (11.5-14.5); WBC 36.23 10*3/uL (4.50-10.00)
[2025-01-18 03:12] LABS: MCV 96.9 fL (80.0-97.0)
[2025-01-18 03:14] VITALS: BP 77/44; PULSE 128; RESP 19
[2025-01-18] MEDS: MORPHINE SULFATE 100 MG in SODIUM CHLORIDE 0.9% 90 ML IV SCH (03:52)
[2025-01-18] MEDS: SCOPOLAMINE 1 MG/72 HR PATCH TRANSDERM SCH (03:52)
[2025-01-18] MEDS ORDERED: LORazepam 1 MG/0.5 ML VIAL IV PRN (04:00)
[2025-01-18] MEDS ORDERED: ATROPINE OPHTH SOLN 1% 5ML BTL SUBLINGUAL PRN (04:00)
[2025-01-18 06:29] LABS: Lymphocytes # (M) 0.72 k/uL (1.0-4.8); Metamyelocytes # (M) 0.36 k/uL (0); Monocytes # (M) 1.45 k/uL (0-1.0); Neutrophils # (M) 34.05 k/uL (1.3-7.7); Neutrophils % (M) 92 %; Total Cells Counted 200
[2025-01-18 06:31] LABS: Polychromasia Present; Toxic Vacuolation Present
--- NOTE | 2025-01-23 17:05 | CDI ---
Documentation Clarification Form Date: 01/23/2025 04:42:40 PM From: Maria Teresa Shelby Admit Date: 01/16/2025 03:20:00 PM Patient Name: Zohreh Moraes Visit Number: [id number] Discharge Date: 01/18/2025 06:26:00 AM ATTENTION: The Clinical Documentation Specialists (CDI) and [facility] Coding Staff appreciate your assistance in clarifying documentation. Please respond to the clarification below the line at the bottom and electronically sign. The CDI & [facility] Coding staff will review the response and follow-up if needed. Please note: Queries are made part of the Legal Health Record. If you have any questions, please contact the author of this message via ITS. Doctor/Provider: Ella Dennis Acute pulmonary embolism, submassive, involving right main pulmonary artery with extension into the right middle lobe segmental and subsegmental pulmonary arteries. CT evidence of right sided heart strain is documented in your pulmonary consultation 01/17/25. Based on this information and the findings below, is there an additional diagnosis that is clinically appropriate for this patient? History/Risk Factors: 69 year old female with a history of asthma, GERD, hypertension Clinical Indicators: patient presented with altered mental status. Found to have sepsis, pneumonia, UTI, and pulmonary embolism with CT evidence of right sided heart strain. Also in acute hypoxic respiratory failure and atrial fibrillation. BNP 7310 CT chest: large PE within the right mainstem bronchus with additional extension into the right middle lobe segmental and subsegmental pulmonary arteries. Concerning for possible right heart strain with dilated main pulmonary artery and refluz of contrast in the IVC. Large right pleural effusion with atelectasis, possible superimposed infectious processes versus developing pulmonary infarcts. Treatment: Zosyn, IV fluids, IV heparin, eliquis on hold, patient was changed to comfort care and DNR Is there an additional diagnosis that is clinically appropriate for this patient? [ ] Acute Cor pulmonale due to pulmonary embolism [ x] Unable to determine [ ] Other, please specify MTDD
== END 2025-01-18 06:26 | disposition expired | DRG 871 ==
LOC: EC 13:04 → 3SCARD 15:20 → 2SICU 01-17 12:57
PROVIDERS: ADMIT Internal Medicine; ATTEND Internal Medicine
PROC: 3E033XZ Introduction of Vasopressor into Peripheral Vein, Percutaneous Approach (ICD-10-PCS; principal; 2025-01-17)
DX: A41.9 Sepsis, unspecified organism (principal); G93.41 Metabolic encephalopathy; I26.99 Other pulmonary embolism without acute cor pulmonale; J18.9 Pneumonia, unspecified organism; J96.01 Acute respiratory failure with hypoxia; I26.93 Single subsegmental thrombotic pulmonary embolism without acute cor pulmonale; R65.21 Severe sepsis with septic shock; E87.20 Acidosis, unspecified; L89.152 Pressure ulcer of sacral region, stage 2; B37.9 Candidiasis, unspecified; J90 Pleural effusion, not elsewhere classified; Z68.41 Body mass index [BMI] 40.0-44.9, adult; I10 Essential (primary) hypertension; J45.909 Unspecified asthma, uncomplicated; I48.19 Other persistent atrial fibrillation; N39.0 Urinary tract infection, site not specified; E87.1 Hypo-osmolality and hyponatremia; J98.11 Atelectasis; E66.01 Morbid (severe) obesity due to excess calories; Z66 Do not resuscitate; Z51.5 Encounter for palliative care; G93.89 Other specified disorders of brain; Z74.09 Other reduced mobility; L89.90 Pressure ulcer of unspecified site, unspecified stage; K21.9 Gastro-esophageal reflux disease without esophagitis; M19.90 Unspecified osteoarthritis, unspecified site; E87.5 Hyperkalemia; E87.70 Fluid overload, unspecified; E78.5 Hyperlipidemia, unspecified; J32.0 Chronic maxillary sinusitis; Z79.899 Other long term (current) drug therapy; Z88.1 Allergy status to other antibiotic agents; Z79.84 Long term (current) use of oral hypoglycemic drugs; Z79.01 Long term (current) use of anticoagulants
CPT/HCPCS: 36415; 36600; 51702; 70450; 71045; 71275; 80053; 81001; 82805; 83605; 83735; 83880; 84145; 84484; 85025; 85610; 85730; 87040; 87077; 87086; 87186; 87449; 93005; 93970; 94640; 96361; 96365; 96366; 96367; 96368; 96375; 96376; 99291